=== PATIENT | female | born 1980 | race Caucasian/White ===

== ENCOUNTER 2017-05-30 09:09 | Emergency (ER) | payer BC ==
[~2017-05-30] VITALS: Ht 188 cm; Wt 131.5 kg
[~2017-05-30 09:09] MED LIST: HYDR1TAB26 PO; LEXAPRO10 MG PO; METF500T4 PO; METO-269 PO; NORG1TAB41 PO; PROP60CA PO; TOPI100T8 PO; TOPI50TA8 PO
[2017-05-30] MEDS ORDERED: MORPHINE SULFATE 10 MG/ML VIAL. IV ONE (09:45)
--- NOTE | 2017-05-30 10:02 | RAD ---
Indication left-sided chest pain. A single view of the chest was obtained and is compared to an examination 13 months earlier the heart and pulmonary vessels appear normal. The lungs are clear. There is no pleural fluid or pneumothorax. Bony structures appear grossly intact. A significant change compared to the previous exam is not seen. Bipolar cardiac pacing device is noted. IMPRESSION: No acute or focal process. No significant change
[2017-05-30 10:05] LABS: BASO % 1 % (0-3); EOS % 2 % (0-3); LYMPH # 2.4 x10^3/uL (1.0-4.8); LYMPH % 38 % (24-48); MEAN CORPUSCULAR HEMOGLOBIN 29 pg (25-35); MEAN CORPUSCULAR HGB CONC 33 g/dL (31-37); MEAN CORPUSCULAR VOLUME 88 fL (79-100); MONO % 8 % (0-9); NEUT % 52 % (31-73); PLATELET COUNT 251 x10^3/uL (140-400); RED BLOOD COUNT 4.43 x10^6/uL (3.50-5.40); RED CELL DISTRIBUTION WIDTH 13.5 % (11.5-14.5); WHITE BLOOD COUNT 6.4 x10^3/uL (4.0-11.0)
[2017-05-30 10:17] LABS: CALCIUM 8.5 mg/dL (8.5-10.1); GFR 63.1
[2017-05-30 10:23] LABS: ALBUMIN 3.3 g/dL (3.4-5.0); ALBUMIN/GLOBULIN RATIO 0.9 (1.0-1.7); TOTAL BILIRUBIN 0.4 mg/dL (0.2-1.0); TOTAL PROTEIN 6.9 g/dL (6.4-8.2)
--- NOTE | 2017-05-30 10:27 | PHYS DOC ---
Past Medical History Past Medical History: CAD, Diabetes-Type II, Other Additional Past Medical Histor: bradycardia Past Surgical History: Pacemaker, Other Additional Past Surgical Histo: L ankle, plastic surgery to lip Alcohol Use: None Drug Use: None Adult General Chief Complaint Chief Complaint: CHEST PAIN HPI HPI Patient is a 37 year old female presenting to the emergency department for evaluation of chest pain around her pacemaker site happened yesterday around noon for which she called the ambulance and was seen at [facility] for approximately 4-5 hours. She said that they tried getting a pacemaker interrogation but they could not find it. She cannot elaborate any further. She has a [employer] pacemaker and follows with Dr. Mary. Patient says it is achy and sharp-type pain in that occurred again 2 hours prior to arrival. She denies any shortness of breath diaphoresis nausea vomiting. She had the pacemaker placed for bradycardic episodes and had a cardiac arrest event while having her tilt table test. Review of Systems Review of Systems Constitutional: Denies fever or chills [] Eyes: Denies change in visual acuity, redness, or eye pain [] HENT: Denies nasal congestion or sore throat [] Respiratory: Denies cough or shortness of breath [] Cardiovascular: + CP GI: Denies abdominal pain, nausea, vomiting, bloody stools or diarrhea [] : Denies dysuria or hematuria [] Musculoskeletal: Denies back pain or joint pain [] Integument: Denies rash or skin lesions [] Neurologic: Denies headache, focal weakness or sensory changes [] Current Medications Current Medications Current Medications Medications (Trade) Dose Ordered Sig/Cary Start Time Stop Time Status Last Admin Dose Admin Fentanyl Citrate (Fentanyl 2ml Vial) 75 mcg 1X ONCE 05/30/17 10:45 05/30/17 10:46 DC 05/30/17 11:10 75 MCG Ketorolac Tromethamine (Toradol) 30 mg 1X ONCE 05/30/17 10:45 05/30/17 10:46 DC 05/30/17 11:15 30 MG Morphine Sulfate 5 mg 1X ONCE 05/30/17 09:45 05/30/17 09:46 DC 05/30/17 09:57 5 MG Allergies Allergies Allergies Coded Allergies Type Severity Reaction Last Updated Verified cinnamon Allergy Severe throat closes 02/02/16 Yes Sulfa (Sulfonamide Antibiotics) Allergy Intermediate rash 02/02/16 Yes Physical Exam Physical Exam Constitutional: Well developed, well nourished, no acute distress, non-toxic appearance. [] HENT: Normocephalic, atraumatic, bilateral external ears normal, oropharynx moist, no oral exudates, nose normal. [] Eyes: PERRLA, EOMI, conjunctiva normal, no discharge. [] Neck: Normal range of motion, no tenderness, supple, no stridor. [] Cardiovascular:Heart rate regular rhythm, no murmur [] Lungs & Thorax: Bilateral breath sounds clear to auscultation. + chest wall ttp around pacemaker. No redness, swelling, inflammation. Abdomen: Bowel sounds normal, soft, no tenderness, no masses, no pulsatile masses. [] Skin: Warm, dry, no erythema, no rash. [] Back: No tenderness, no CVA tenderness. [] Extremities: No tenderness, no cyanosis, no clubbing, ROM intact, no edema. [] Neurologic: Alert and oriented X 3, normal motor function, normal sensory function, no focal deficits noted. [] Current Patient Data Vital Signs Vital Signs Date Time Temp Pulse Resp B/P (MAP) Pulse Ox O2 Delivery O2 Flow Rate FiO2 05/30/17 11:19 60 18 148/80 (102) 99 Room Air 05/30/17 09:20 97.9 97.9 Lab Values Laboratory Tests Test 05/30/17 09:30 White Blood Count 6.4 x10^3/uL (4.0-11.0) Red Blood Count 4.43 x10^6/uL (3.50-5.40) Hemoglobin 13.0 g/dL (12.0-15.5) Hematocrit 39.0 % (36.0-47.0) Mean Corpuscular Volume 88 fL (79-100) Mean Corpuscular Hemoglobin 29 pg (25-35) Mean Corpuscular Hemoglobin Concent 33 g/dL (31-37) Red Cell Distribution Width 13.5 % (11.5-14.5) Platelet Count 251 x10^3/uL (140-400) Neutrophils (%) (Auto) 52 % (31-73) Lymphocytes (%) (Auto) 38 % (24-48) Monocytes (%) (Auto) 8 % (0-9) Eosinophils (%) (Auto) 2 % (0-3) Basophils (%) (Auto) 1 % (0-3) Neutrophils # (Auto) 3.4 x10^3uL (1.8-7.7) Lymphocytes # (Auto) 2.4 x10^3/uL (1.0-4.8) Monocytes # (Auto) 0.5 x10^3/uL (0.0-1.1) Eosinophils # (Auto) 0.1 x10^3/uL (0.0-0.7) Basophils # (Auto) 0.0 x10^3/uL (0.0-0.2) Sodium Level 143 mmol/L (136-145) Potassium Level 4.0 mmol/L (3.5-5.1) Chloride Level 106 mmol/L (98-107) Carbon Dioxide Level 29 mmol/L (21-32) Anion Gap 8 (6-14) Blood Urea Nitrogen 11 mg/dL (7-20) Creatinine 1.0 mg/dL (0.6-1.0) Estimated GFR (Cockcroft-Gault) 63.1 BUN/Creatinine Ratio 11 (6-20) Glucose Level 104 mg/dL (70-99) H Calcium Level 8.5 mg/dL (8.5-10.1) Total Bilirubin 0.4 mg/dL (0.2-1.0) Aspartate Amino Transferase (AST) 13 U/L (15-37) L Alanine Aminotransferase (ALT) 19 U/L (14-59) Alkaline Phosphatase 43 U/L (46-116) L Troponin I Quantitative < 0.017 ng/mL (0.000-0.055) KF-Fys-H-Type Natriuretic Peptide 81 pg/mL (0-124) Total Protein 6.9 g/dL (6.4-8.2) Albumin 3.3 g/dL (3.4-5.0) L Albumin/Globulin Ratio 0.9 (1.0-1.7) L Laboratory Tests 05/30/17 09:30 Laboratory Tests 05/30/17 09:30 EKG EKG Normal sinus rhythm at 71 beats per minutes with leftward axis no obvious ST elevation or depression and normal T waves. Radiology/Procedures Radiology/Procedures Indication left-sided chest pain. A single view of the chest was obtained and is compared to an examination 13 months earlier the heart and pulmonary vessels appear normal. The lungs are clear. There is no pleural fluid or pneumothorax. Bony structures appear grossly intact. A significant change compared to the previous exam is not seen. Bipolar cardiac pacing device is noted. IMPRESSION: No acute or focal process. No significant change DICTATED and SIGNED BY: MILLY CORONADO MD DATE: 05/30/17 0958 Course & Med Decision Making Course & Med Decision Making Will get labs, CXR, EKG, pacemaker interrogation, and reasess. Pacemaker interrogation showed that she has a very functional pacemaker with no episodes. Labs are completely normal. Pain is more around the site of her pacemaker to palpation but there is no signs of infection or other concerns. I spoke to Dr. Mary and he is agreeable to outpatient care so I will tell her to take NSAIDs in addition to [place] for breakthrough pain and to follow with Dr. Mary within the next 2-3 days not to exert herself and come back to the ER sooner with any worsening pain fevers vomiting or other general concerns. Patient and family aware and agreeable with plan and verbalized understanding of the below instructions. Dragon Disclaimer Dragon Disclaimer This electronic medical record was generated, in whole or in part, using a voice recognition dictation system. Departure Departure Impression: Primary Impression: Anterior chest wall pain Disposition: 01 HOME, SELF-CARE Condition: GOOD Referrals: ANGELITA CHERRY (PCP) ALANNA NUNEZ MD Patient Instructions: Chest Wall Pain Scripts Hydrocodone/Apap 5-325 (NORCO 5-325 TABLET) 1 Each Tablet 1 TAB PO PRN Q6HRS Y for PAIN, #14 TAB 0 Refills Prov: LYDIA NESBITT DO 05/30/17 LYDIA NESBITT DO May 30, 2017 10:27
[2017-05-30] MEDS ORDERED: KETOROLAC TROMETHAMINE 30 MG/ML INJ. IV ONE (10:45)
[2017-05-30] MEDS ORDERED: fentaNYL PF VIAL 100 MCG/2 ML VIAL IV ONE (10:45)
[2017-05-30 11:01] LABS: PROTHROMBIN TIME PATIENT 12.7 SEC (11.7-14.0)
[2017-05-30] MEDS ORDERED: HYDR-971 PO (11:27)
[2017-05-30 11:46] VITALS: BP 135/78
--- NOTE | 2017-05-30 12:12 | EKG ---
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
== END 2017-05-30 11:52 | disposition home or self-care (01) ==
LOC: ER 09:09
DX: R07.89 Other chest pain (principal); I25.10 Atherosclerotic heart disease of native coronary artery without angina pectoris; E11.9 Type 2 diabetes mellitus without complications; Z95.0 Presence of cardiac pacemaker; Z88.2 Allergy status to sulfonamides; Z88.8 Allergy status to other drugs, medicaments and biological substances
CPT/HCPCS: 36415; 71010; 80053; 83880; 84484; 85027; 85610; 85730; 93005; 96374; 96375; 99285; J1885; J2270; J3010

== ENCOUNTER 2017-06-01 12:21 | Observation (INO) | payer SELFPAY ==
[~2017-06-01] VITALS: Ht 188 cm; Wt 141.5 kg
[~2017-06-01 12:21] MED LIST changes: +HYDR-971 PO
--- NOTE | 2017-06-01 13:20 | RAD ---
Examination: Single frontal view the chest History: History of chest pain, left arm numbness, left leg swelling Comparison: None available Findings: Left-sided cardiac pacer is unchanged. The cardiomediastinal silhouette grossly appears unremarkable. There is no acute infiltrate or visualize pneumothorax. Impression: No acute cardiopulmonary findings.
[2017-06-01 13:27] LABS: BASO % 1 % (0-3); EOS % 2 % (0-3); HEMATOCRIT 37.4 % (36.0-47.0); HEMOGLOBIN 12.7 g/dL (12.0-15.5); LYMPH # 2.7 x10^3/uL (1.0-4.8); LYMPH % 45 % (24-48); MEAN CORPUSCULAR HEMOGLOBIN 30 pg (25-35); MEAN CORPUSCULAR HGB CONC 34 g/dL (31-37); MEAN CORPUSCULAR VOLUME 87 fL (79-100); MONO % 8 % (0-9); NEUT % 44 % (31-73); PLATELET COUNT 238 x10^3/uL (140-400); RED CELL DISTRIBUTION WIDTH 13.6 % (11.5-14.5)
[2017-06-01 13:42] LABS: INR 0.9 (0.8-1.1); PROTHROMBIN TIME PATIENT 11.9 SEC (11.7-14.0)
[2017-06-01 13:43] LABS: CALCIUM 8.4 mg/dL (8.5-10.1); GFR 63.1; POTASSIUM 4.1 mmol/L (3.5-5.1)
--- NOTE | 2017-06-01 13:45 | PHYS DOC ---
Past Medical History Past Medical History: CAD, Diabetes-Type II, Other Additional Past Medical Histor: bradycardia Past Surgical History: Pacemaker, Other Additional Past Surgical Histo: L ankle, plastic surgery to lip Alcohol Use: None Drug Use: None Adult General Chief Complaint Chief Complaint: CHEST PAIN HPI HPI Patient is a 37 year old patient presenting to the emergency department for evaluation of several complaints including persistent left-sided chest pain left arm and leg numbness and tingling. This is her fourth emergency department visit in 7 days as she went to [employer] last Friday in addition to [place] and then I saw her here Friday and I'm seeing her 2 days later. Chest pain is still sharp worse with palpation of her chest wall around her pacemaker site. While she was in [place] today she started having circumferential left arm numbness and numbness down the front of her left leg. The numbness in her arm and leg is improving and now she just feels tingling on the bottom of her left foot. She denies any vision changes confusion unilateral weakness headache. She is in no obvious distress with normal vital signs. Review of Systems Review of Systems Constitutional: Denies fever or chills [] Eyes: Denies change in visual acuity, redness, or eye pain [] HENT: Denies nasal congestion or sore throat [] Respiratory: Denies cough or shortness of breath [] Cardiovascular: + CP GI: Denies abdominal pain, nausea, vomiting, bloody stools or diarrhea [] : Denies dysuria or hematuria [] Musculoskeletal: Denies back pain or joint pain [] Integument: Denies rash or skin lesions [] Neurologic: Denies headache, focal weakness. + sensory changes [] Allergies Allergies Allergies Coded Allergies Type Severity Reaction Last Updated Verified cinnamon Allergy Severe throat closes 02/02/16 Yes Sulfa (Sulfonamide Antibiotics) Allergy Intermediate rash 02/02/16 Yes Physical Exam Physical Exam Constitutional: Well developed, well nourished, no acute distress, non-toxic appearance. [] HENT: Normocephalic, atraumatic, bilateral external ears normal, oropharynx moist, no oral exudates, nose normal. [] Eyes: PERRLA, EOMI, conjunctiva normal, no discharge. [] Neck: Normal range of motion, no tenderness, supple, no stridor. [] Cardiovascular:Heart rate regular rhythm, no murmur [] Lungs & Thorax: Bilateral breath sounds clear to auscultation. + chest wall ttp around pacemaker site. Abdomen: Bowel sounds normal, soft, no tenderness, no masses, no pulsatile masses. [] Skin: Warm, dry, no erythema, no rash. [] Back: No tenderness, no CVA tenderness. [] Extremities: No tenderness, no cyanosis, no clubbing, ROM intact, no edema. [] Neurologic: Alert and oriented X 3, normal motor function, normal sensory function, no focal deficits noted. [] Current Patient Data Vital Signs Vital Signs Date Time Temp Pulse Resp B/P (MAP) Pulse Ox O2 Delivery O2 Flow Rate FiO2 06/01/17 13:18 97.5 70 16 142/84 (103) 97 Room Air 97.5 Lab Values Laboratory Tests Test 06/01/17 13:18 White Blood Count 6.0 x10^3/uL (4.0-11.0) Red Blood Count 4.30 x10^6/uL (3.50-5.40) Hemoglobin 12.7 g/dL (12.0-15.5) Hematocrit 37.4 % (36.0-47.0) Mean Corpuscular Volume 87 fL (79-100) Mean Corpuscular Hemoglobin 30 pg (25-35) Mean Corpuscular Hemoglobin Concent 34 g/dL (31-37) Red Cell Distribution Width 13.6 % (11.5-14.5) Platelet Count 238 x10^3/uL (140-400) Neutrophils (%) (Auto) 44 % (31-73) Lymphocytes (%) (Auto) 45 % (24-48) Monocytes (%) (Auto) 8 % (0-9) Eosinophils (%) (Auto) 2 % (0-3) Basophils (%) (Auto) 1 % (0-3) Neutrophils # (Auto) 2.6 x10^3uL (1.8-7.7) Lymphocytes # (Auto) 2.7 x10^3/uL (1.0-4.8) Monocytes # (Auto) 0.5 x10^3/uL (0.0-1.1) Eosinophils # (Auto) 0.1 x10^3/uL (0.0-0.7) Basophils # (Auto) 0.0 x10^3/uL (0.0-0.2) Laboratory Tests 06/01/17 13:18 EKG EKG Sinus rhythm at 71 bpm with normal axis no obvious ST elevation or depression and normal T waves. Radiology/Procedures Radiology/Procedures Chest x-ray normal Course & Med Decision Making Course & Med Decision Making Patient is in TPA time window however her NIH is 0 and her symptoms are resolving which is a contraindication for TPA. Given her frequent emergency department visits I spoke to Dr. Mcpherson who is on-call for Dr. Mary and she recommended admitting patient for neurologic and cardiac evaluation. Patient admitted to the hospitalist in stable condition. Dragon Disclaimer Dragon Disclaimer This electronic medical record was generated, in whole or in part, using a voice recognition dictation system. Departure Departure Impression: Primary Impression: Anterior chest wall pain Additional Impressions: Left upper extremity numbness Numbness of left lower extremity Disposition: ADMITTED INPATIENT Admitting Physician: Wilbur Epstein Condition: STABLE Referrals: ANGELITA CHERRY (PCP) Problem Qualifiers LYDIA NESBITT DO Jun 01, 2017 13:45
[2017-06-01 13:49] LABS: ALBUMIN 3.2 g/dL (3.4-5.0); ALBUMIN/GLOBULIN RATIO 0.9 (1.0-1.7); TOTAL BILIRUBIN 0.2 mg/dL (0.2-1.0); TOTAL PROTEIN 6.9 g/dL (6.4-8.2)
--- NOTE | 2017-06-01 14:11 | RAD ---
Examination: CT head and cervical spine without contrast PQRS Compliance Statement: One or more of the following individualized dose reduction techniques were utilized for this examination: 1. Automated exposure control 2. Adjustment of the mA and/or kV according to patient size 3. Use of iterative reconstruction technique CT head without contrast History: Left arm and leg numbness. Comparison: CT head from 10/27/2013. Procedure: Axial images are obtained of the head from the skull base through the vertex without IV contrast. Findings: The ventricles and sulci are normal for the patient's age. No mass-effect, intracranial mass, midline shift, hemorrhage or obvious acute infarction is identified. Basilar cisterns are patent. Bone windows demonstrate no significant calvarial abnormality. The visualized paranasal sinuses appear clear. Impression: 1. No acute intracranial process. CT cervical spine without contrast History: Left arm numbness Comparison: 06/17/2015 Technique: Noncontrast helical CT of the cervical spine was performed. Sagittal, and coronal reconstructions were obtained. Findings: Alignment of the cervical spine appears anatomic. There is no evidence of acute fracture or acute malalignment. No prevertebral soft tissue swelling is identified. Minimal disc bulges identified in the cervical spine without significant anterior thecal sac impression. Visualized soft tissues of the neck demonstrate no significant abnormalities. Few prominent bilateral cervical lymph nodes identified with the largest measuring 1.9 cm and the left, nonspecific. Impression: 1. No acute fracture of the cervical spine. Correlate clinically. 2. Mild degenerative changes cervical spine.
[2017-06-01] MEDS ORDERED: fentaNYL PF VIAL 100 MCG/2 ML VIAL IV PRN (14:15)
[2017-06-01] MEDS ORDERED: ONDANSETRON PF 4 MG/2 ML VIAL. IV PRN ×2 (14:15→16:45)
[2017-06-01] MEDS ORDERED: HYDROcodone/APAP 5/325MG 1 TAB TABLET PO ONE (14:30)
[2017-06-01] MEDS ORDERED: IOHEXOL 300 MG/ML 75 ML VIAL IV ONE (14:30)
[2017-06-01] MEDS ORDERED: KETOROLAC TROMETHAMINE 30 MG/ML INJ. IV ONE (14:30)
[2017-06-01] MEDS ORDERED: CONTRAST GIVEN MC PRN (14:45)
--- NOTE | 2017-06-01 15:16 | RAD ---
Examination: CT angiogram of the chest History: History of chest pain, elevated d-dimer, left arm, leg numbness Comparison: 06/17/2015 Technique: Axial CT and static images of the chest were performed with IV contrast. Coronal and sagittal 3-D MIP reformats are performed. PQRS Compliance Statement: One or more of the following individualized dose reduction techniques were utilized for this examination: 1. Automated exposure control 2. Adjustment of the mA and/or kV according to patient size 3. Use of iterative reconstruction technique Findings: The visualized thyroid gland grossly appears unremarkable The heart size grossly appears unremarkable. Left-sided cardiac pacer is identified. The caliber of the aorta grossly appears unremarkable. There is no evidence of filling defect identified in the main pulmonary arterial trunk and right and left main pulmonary arteries. There is no evidence of filling defect identified in the visualized lobar, segmental branches of the pulmonary arteries. Minimal right lung base pleural-based atelectasis or scarring. No evidence of pleural effusion or pneumothorax. The visualized liver, spleen, adrenals grossly appears unremarkable. Mild degenerative changes thoracic spine. Impression: 1. No evidence of pulmonary embolism. 2. Minimal right lung base pleural-based atelectasis or scarring.
[2017-06-01 15:39] VITALS: BP 144/86
[2017-06-01] MEDS ORDERED: ESCITALOPRAM OX20 MG PO (16:37)
--- NOTE | 2017-06-01 16:43 | PDOC1 ---
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 While patient was sitting in congregation her symptoms came suddenly and lasted for a few minutes. At the time of my examination this evening her symptoms resolved however patient says she is very weak and feels like no energy. She denies any palpitations however she had a significant heart rate 2 days ago. Patient says she was admitted she was in [facility] ER and [place] emergency medicine Department for several reasons such as facial rash, and palpitations. She denies any substance abuse or noncompliance with medications or anxiety episodes. She denies any relieving factors or aggravating factors. Past Medical History Cardiovascular: HTN, Syncope, Other CENTRAL NERVOUS SYSTEM: Other Psych: Anxiety Past Surgical History Past Surgical History: Hysterectomy Family History Family History: Other (heart failure grandparents) Social History Smoke: No ALCOHOL: rare Drugs: None Current Problem List Problem List Problems Medical Problems: (1) Anterior chest wall pain Status: Acute (2) Left upper extremity numbness Status: Acute (3) Numbness of left lower extremity Status: Acute Current Medications Current Medications Current Medications Medications (Trade) Dose Ordered Sig/Cary Start Time Stop Time Status Last Admin Dose Admin Acetaminophen/ Hydrocodone Bitart (Lortab 5/325) 2 tab 1X ONCE 06/01/17 14:30 06/01/17 14:31 DC 06/01/17 15:21 2 TAB Fentanyl Citrate (Fentanyl 2ml Vial) 50 mcg PRN Q2HR PRN 06/01/17 14:15 06/02/17 14:14 Info (Do NOT chart on this entry -- for MONITORING) 1 each PRN DAILY PRN 06/01/17 14:45 06/03/17 14:44 Iohexol (Omnipaque 300 Mg/ml) 75 ml 1X ONCE 06/01/17 14:30 06/01/17 14:35 DC 06/01/17 14:47 75 ML Ketorolac Tromethamine (Toradol) 30 mg 1X ONCE 06/01/17 14:30 06/01/17 14:31 DC 06/01/17 15:21 30 MG Ondansetron HCl (Zofran) 4 mg PRN Q8HRS PRN 06/01/17 14:15 06/02/17 14:14 Allergies Allergies Allergies Coded Allergies Type Severity Reaction Last Updated Verified cinnamon Allergy Severe throat closes 02/02/16 Yes Sulfa (Sulfonamide Antibiotics) Allergy Intermediate rash 02/02/16 Yes mushroom Allergy Intermediate 06/01/17 Yes ROS Review of System CONSTITUTIONAL: No fever or chills ,generalized weakness EYES: No recent changes SKIN: No rash or itching CARDIOVASCULAR: No chest pain, syncope, palpitations, or edema RESPIRATORY: No SOB or cough GASTROINTESTINAL: No nausea, vomiting or abdominal pain NEUROLOGICAL: No headaches or weakness ENDOCRINE: No cold or heat intolerance GENITOURINARY: No urgency or frequency of urination MUSCULOSKELETAL: No back pain or joint pain LYMPHATICS: No enlarged lymph nodes PSYCHIATRIC: No anxiety or depression Physical Exam Physical Exam GEN.: No apparent distress. Alert and oriented 3, morbidly obese. HEENT: Head is normocephalic, atraumatic NECK: Supple. No JVD LUNGS: Clear to auscultation. Chest clear, no erythema or redness seen around the pacemaker site. HEART: RRR, S1, S2 present. Peripheral pulses intact ABDOMEN: Soft, nontender. Positive bowel sounds. EXTREMITIES: Without any cyanosis. NEUROLOGIC: Normal speech, normal tone and strength in all extremities equally and intact. PSYCHIATRIC: Normal affect, normal mood. SKIN: No visible ulcerations Vitals Vitals Vital Signs Date Time Temp Pulse Resp B/P (MAP) Pulse Ox O2 Delivery O2 Flow Rate FiO2 06/01/17 16:25 16 Room Air 06/01/17 15:39 97.5 81 144/86 (105) 98 97.5 Labs Labs Laboratory Tests Test 06/01/17 13:18 06/01/17 16:35 White Blood Count 6.0 x10^3/uL (4.0-11.0) Red Blood Count 4.30 x10^6/uL (3.50-5.40) Hemoglobin 12.7 g/dL (12.0-15.5) Hematocrit 37.4 % (36.0-47.0) Mean Corpuscular Volume 87 fL (79-100) Mean Corpuscular Hemoglobin 30 pg (25-35) Mean Corpuscular Hemoglobin Concent 34 g/dL (31-37) Red Cell Distribution Width 13.6 % (11.5-14.5) Platelet Count 238 x10^3/uL (140-400) Neutrophils (%) (Auto) 44 % (31-73) Lymphocytes (%) (Auto) 45 % (24-48) Monocytes (%) (Auto) 8 % (0-9) Eosinophils (%) (Auto) 2 % (0-3) Basophils (%) (Auto) 1 % (0-3) Neutrophils # (Auto) 2.6 x10^3uL (1.8-7.7) Lymphocytes # (Auto) 2.7 x10^3/uL (1.0-4.8) Monocytes # (Auto) 0.5 x10^3/uL (0.0-1.1) Eosinophils # (Auto) 0.1 x10^3/uL (0.0-0.7) Basophils # (Auto) 0.0 x10^3/uL (0.0-0.2) Prothrombin Time 11.9 SEC (11.7-14.0) Prothromb Time International Ratio 0.9 (0.8-1.1) Activated Partial Thromboplast Time 26 SEC (24-38) D-Dimer (Erika) 0.52 ug/mlFEU (0.00-0.50) Sodium Level 142 mmol/L (136-145) Potassium Level 4.1 mmol/L (3.5-5.1) Chloride Level 107 mmol/L (98-107) Carbon Dioxide Level 29 mmol/L (21-32) Anion Gap 6 (6-14) Blood Urea Nitrogen 11 mg/dL (7-20) Creatinine 1.0 mg/dL (0.6-1.0) Estimated GFR (Cockcroft-Gault) 63.1 BUN/Creatinine Ratio 11 (6-20) Glucose Level 106 mg/dL (70-99) Calcium Level 8.4 mg/dL (8.5-10.1) Total Bilirubin 0.2 mg/dL (0.2-1.0) Aspartate Amino Transf (AST/SGOT) 18 U/L (15-37) Alanine Aminotransferase (ALT/SGPT) 23 U/L (14-59) Alkaline Phosphatase 44 U/L (46-116) Troponin I Quantitative < 0.017 ng/mL (0.000-0.055) BB-Yqh-J-Type Natriuretic Peptide 156 pg/mL (0-124) Total Protein 6.9 g/dL (6.4-8.2) Albumin 3.2 g/dL (3.4-5.0) Albumin/Globulin Ratio 0.9 (1.0-1.7) Glucose (Fingerstick) 92 mg/dL (70-99) Laboratory Tests Test 06/01/17 13:18 06/01/17 16:35 White Blood Count 6.0 x10^3/uL (4.0-11.0) Red Blood Count 4.30 x10^6/uL (3.50-5.40) Hemoglobin 12.7 g/dL (12.0-15.5) Hematocrit 37.4 % (36.0-47.0) Mean Corpuscular Volume 87 fL (79-100) Mean Corpuscular Hemoglobin 30 pg (25-35) Mean Corpuscular Hemoglobin Concent 34 g/dL (31-37) Red Cell Distribution Width 13.6 % (11.5-14.5) Platelet Count 238 x10^3/uL (140-400) Neutrophils (%) (Auto) 44 % (31-73) Lymphocytes (%) (Auto) 45 % (24-48) Monocytes (%) (Auto) 8 % (0-9) Eosinophils (%) (Auto) 2 % (0-3) Basophils (%) (Auto) 1 % (0-3) Neutrophils # (Auto) 2.6 x10^3uL (1.8-7.7) Lymphocytes # (Auto) 2.7 x10^3/uL (1.0-4.8) Monocytes # (Auto) 0.5 x10^3/uL (0.0-1.1) Eosinophils # (Auto) 0.1 x10^3/uL (0.0-0.7) Basophils # (Auto) 0.0 x10^3/uL (0.0-0.2) Prothrombin Time 11.9 SEC (11.7-14.0) Prothromb Time International Ratio 0.9 (0.8-1.1) Activated Partial Thromboplast Time 26 SEC (24-38) D-Dimer (Erika) 0.52 ug/mlFEU (0.00-0.50) Sodium Level 142 mmol/L (136-145) Potassium Level 4.1 mmol/L (3.5-5.1) Chloride Level 107 mmol/L (98-107) Carbon Dioxide Level 29 mmol/L (21-32) Anion Gap 6 (6-14) Blood Urea Nitrogen 11 mg/dL (7-20) Creatinine 1.0 mg/dL (0.6-1.0) Estimated GFR (Cockcroft-Gault) 63.1 BUN/Creatinine Ratio 11 (6-20) Glucose Level 106 mg/dL (70-99) Calcium Level 8.4 mg/dL (8.5-10.1) Total Bilirubin 0.2 mg/dL (0.2-1.0) Aspartate Amino Transf (AST/SGOT) 18 U/L (15-37) Alanine Aminotransferase (ALT/SGPT) 23 U/L (14-59) Alkaline Phosphatase 44 U/L (46-116) Troponin I Quantitative < 0.017 ng/mL (0.000-0.055) UM-Btx-L-Type Natriuretic Peptide 156 pg/mL (0-124) Total Protein 6.9 g/dL (6.4-8.2) Albumin 3.2 g/dL (3.4-5.0) Albumin/Globulin Ratio 0.9 (1.0-1.7) Glucose (Fingerstick) 92 mg/dL (70-99) VTE Prophylaxis Ordered VTE Prophylaxis Devices: Yes VTE Pharmacological Prophylaxi: Contraindicated Assessment/Plan Assessment/Plan Left upper extremity numbness/chest pain: Possible musculoskeletal in nature versus severe anxiety, needs to rule out seizure-like activity, consult cardiology, will get 2 more sets of troponins, EKG personally reviewed no acute ST-T wave changes noted. Cardiology might change probably at her pacemaker. Neurology consultation placed. Current plan and management discussed with the patient and her mother at bedside agreeable with the current management. Current labs and images reviewed CT of chest ruled out PE. First set of troponins within normal range. Old records reviewed. Patient had a coronary artery angiogram in 2014 at the time she was also evaluated by cardiology. Obesity, BMI 40.1 Prediabetes Anxiety and depression. VAL MANUEL MD Jun 01, 2017 16:43
[2017-06-01] MEDS ORDERED: ACETAMINOPHEN 325 MG TABLET. PO PRN (16:45)
[2017-06-01] MEDS ORDERED: ALBUTEROL SULFATE 2.5 MG/3 ML NEBU. NEB PRN (16:45)
[2017-06-01] MEDS ORDERED: hydrALAZINE 20 MG/ML VIAL. IVP PRN (16:45)
[2017-06-01] MEDS ORDERED: HYDROcodone/APAP 5/325MG 1 TAB TABLET PO PRN ×3 (16:45→23:00)
--- NOTE | 2017-06-01 18:50 | EKG ---
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
[2017-06-01 19:10] VITALS: BP 138/85
[2017-06-01 23:21] VITALS: BP 142/88
--- NOTE | 2017-06-01 23:42 | PDOC2 ---
NEUROLOGY CONSULT Date of Admission Date of Admission DATE: 06/01/17 TIME: 23:33 Reason for consultation: Left arm and leg numbness History of present illness: Shayy Orellana is a pleasant 37-year-old woman who presented to the emergency room at [facility] because of left- sided chest pain, left arm numbness and tingling and left leg tingling. 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 After the tingling began in the left arm and leg her left foot felt swollen. Both feet are normally a little swollen with the left worsen the right. The symptoms lasted about an hour and then fully resolved. She did not have a headache at the time but currently has a headache. The symptoms of left arm numbness have occurred on several occasions previously. They have not always been associated with a headache following. She is also had spells of syncope. She was found to have bradycardia and had a pacemaker placed about 5 years ago. She reports this to be an MRI compatible pacemaker. She reports that her most recent MRI of her head was approximately one year ago and was negative. She continues to have occasional spells of syncope about once per month which is less than prior to the placement of the pacemaker. She will feel very dizzy, lightheaded and become pale. She will get diaphoretic and nauseated. If her witnesses the spell he will get her to the ground without her harming herself. Past medical history: 1. Type 2 diabetes for which she does not monitor her sugars or follow a diabetic diet 2. Coronary artery disease 3. Pacemaker 4. Left ankle surgery 5. Plastic surgery to the lip 6. Chest pain Family history: Her mother has lupus. Her maternal grandmother has lupus. Her father has type 2 diabetes Her paternal grandfather had prostate cancer. Her maternal grandmother had seizures. Social history she is . She does not have children. She does not smoke tobacco, drink alcohol except rarely and does not use recreational drugs. 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 Current Medications Current Medications Current Medications Ketorolac Tromethamine (Toradol) 30 mg 1X ONCE IV Last administered on t 15:21; Start 06/01/17 at 14:30; Stop 06/01/17 at 14:31; Status DC Acetaminophen/ Hydrocodone Bitart (Lortab 5/325) 2 tab 1X ONCE PO Last administered on 06/01/17t 15:21; Start 06/01/17 at 14:30; Stop 06/01/17 at 14:31; Status DC Ondansetron HCl (Zofran) 4 mg PRN Q8HRS PRN IV NAUSEA/VOMITING; Start 06/01/17 at 14:15; Stop 06/01/17 at 16:47; Status DC Fentanyl Citrate (Fentanyl 2ml Vial) 50 mcg PRN Q2HR PRN IV PAIN; Start at 14:15; Stop 06/02/17 at 14:14 Iohexol (Omnipaque 300 Mg/ml) 75 ml 1X ONCE IV Last administered on 06/01/17t 14:47; Start 06/01/17 at 14:30; Stop 06/01/17 at 14:35; Status DC Info (Do NOT chart on this entry -- for MONITORING) 1 each PRN DAILY PRN MC SEE COMMENTS; Start 06/01/17 at 14:45; Stop 06/03/17 at 14:44 Acetaminophen/ Hydrocodone Bitart (Lortab 5/325) 1 tab PRN Q6HRS PRN PO PAIN; Start 06/01/17 at 16:45; Status Cancel Metformin HCl (Glucophage) 500 mg BIDWMEALS PO ; Start 06/03/17 at 17:00 Propranolol HCl (Inderal La) 60 mg DAILY PO ; Start 06/02/17 at 09:00 Escitalopram Oxalate (Lexapro) 20 mg DAILY PO ; Start 06/02/17 at 09:00 Non-Formulary Medication 1 each DAILY PO ; Start 06/02/17 at 09:00; Status UNV Topiramate (Topamax) 50 mg DAILY07 PO ; Start 06/02/17 at 07:00 Acetaminophen (Tylenol) 325 mg PRN Q6HRS PRN PO MILD PAIN / TEMP; Start at 16:45 Acetaminophen/ Hydrocodone Bitart (Lortab 5/325) 1 tab PRN Q6HRS PRN PO MODERATE TO SEVERE PAIN; Start 06/01/17 at 16:45; Stop 06/01/17 at 22:46; Status DC Hydralazine HCl (Apresoline) 10 mg PRN Q4HRS PRN IVP ELEVATED BP, SEE COMMENTS ; Start 06/01/17 at 16:45 Ondansetron HCl (Zofran) 4 mg PRN Q8HRS PRN IV NAUSEA/VOMITING; Start 06/01/17 at 16:45 Albuterol Sulfate (Ventolin Neb Soln) 2.5 mg PRN Q4HRS PRN NEB SHORTNESS OF BREATH; Start 06/01/17 at 16:45 Acetaminophen/ Hydrocodone Bitart (Lortab 5/325) 2 tab PRN Q6HRS PRN PO MODERATE TO SEVERE PAIN Last administered on 06/01/17t 23:27; Start 06/01/17 at 23 :00 Active Scripts Active [place] 5-325 Tablet (Acetaminophen/Hydrocodone Bitart) 1 Each Tablet 1 Tab PO PRN Q6HRS PRN Reported Escitalopram Oxalate 20 Mg Tablet 1 Tab PO DAILY Metformin Hcl 500 Mg Tablet 1 Tab PO BID Propranolol Hcl 60 Mg Cap.sa.24h 60 Mg PO DAILY Topiramate 50 Mg Tablet 1 Tab PO DAILY07 Ogestrel (Norgestrel-Ethinyl Estradiol) 1 Each Tablet 1 Each PO DAILY Allergies Allergies: Coded Allergies: cinnamon (Verified Allergy, Severe, throat closes, 02/02/16) Sulfa (Sulfonamide Antibiotics) (Verified Allergy, Intermediate, rash, 10/09) mushroom (Verified Allergy, Intermediate, 06/01/17) ROS Review of System Constitutional: Negative Eyes: Negative HENT: Negative Respiratory: Negative Cardiovascular: She has chest pain. She has episodes of syncope. GI: Negative : Negative Musculoskeletal: Negative Neurologic: She is had episodes of left arm and leg numbness. Hematologic: Negative Lymphatic: Negative Psychiatric: She has anxiety which is not well controlled with Lexapro. Physical Exam Physical Examination She was alert, awake and cooperative. The speech was fluent and clear. She had a good fund of recent and remote knowledge. Attention and concentration was intact. She was well-groomed and well-nourished. She was fully oriented. Examination of the cranial nerves revealed visual huffman were full to confrontation. Extraocular movements were intact. The eyes were conjugate. Pursuit movements were smooth and saccadic movements were without dysmetria. The pupils were [default value] millimeters and reacted to light. There was no afferent pupillary defect. Funduscopic examination did not reveal papilledema, exudate or hemorrhage. Facial sensation was intact. The muscles of mastication and facial expression were powerful symmetrically. Hearing was intact to finger rub. The palate arch symmetrically and the tongue was midline with full range of motion. Sternocleidomastoid and trapezius were powerful bilaterally. Muscle bulk and tone was normal. She had difficulty allowing her muscles to relax for tone testing. There was no arm drift or abnormal movement. The power was full and symmetric in the upper and lower extremities. Reflexes were diminished throughout. The toes were downgoing bilaterally. Coordination testing with finger to nose, heel to subramanian, fine motor and rapid alternating movements was well performed. The sensory examination was intact to pain, light touch, proprioception, graphesthesia, cold thermal and vibration. There was no extinction to double simultaneous stimulation. The gait was of a normal base and steady walk. She was able to heel, toe, and tandem walk. The Romberg stance was negative. Auscultation of the carotid arteries did not reveal a bruit. Heart rhythm was regular without a murmur. Peripheral pulses are 2/4 at the wrists and feet. There was no cyanosis of the extremities. She had edema of the calves and feet. Vitals VITALS Vital Signs Date Time Temp Pulse Resp B/P (MAP) Pulse Ox O2 Delivery O2 Flow Rate FiO2 06/01/17 23:21 98.1 73 18 142/88 (106) 93 Room Air 98.1 Labs Labs Laboratory Tests Test 06/01/17 13:18 06/01/17 16:35 06/01/17 19:55 06/01/17 21:13 White Blood Count 6.0 x10^3/uL (4.0-11.0) Red Blood Count 4.30 x10^6/uL (3.50-5.40) Hemoglobin 12.7 g/dL (12.0-15.5) Hematocrit 37.4 % (36.0-47.0) Mean Corpuscular Volume 87 fL (79-100) Mean Corpuscular Hemoglobin 30 pg (25-35) Mean Corpuscular Hemoglobin Concent 34 g/dL (31-37) Red Cell Distribution Width 13.6 % (11.5-14.5) Platelet Count 238 x10^3/uL (140-400) Neutrophils (%) (Auto) 44 % (31-73) Lymphocytes (%) (Auto) 45 % (24-48) Monocytes (%) (Auto) 8 % (0-9) Eosinophils (%) (Auto) 2 % (0-3) Basophils (%) (Auto) 1 % (0-3) Neutrophils # (Auto) 2.6 x10^3uL (1.8-7.7) Lymphocytes # (Auto) 2.7 x10^3/uL (1.0-4.8) Monocytes # (Auto) 0.5 x10^3/uL (0.0-1.1) Eosinophils # (Auto) 0.1 x10^3/uL (0.0-0.7) Basophils # (Auto) 0.0 x10^3/uL (0.0-0.2) Prothrombin Time 11.9 SEC (11.7-14.0) Prothromb Time International Ratio 0.9 (0.8-1.1) Activated Partial Thromboplast Time 26 SEC (24-38) D-Dimer (Erika) 0.52 ug/mlFEU (0.00-0.50) Sodium Level 142 mmol/L (136-145) Potassium Level 4.1 mmol/L (3.5-5.1) Chloride Level 107 mmol/L (98-107) Carbon Dioxide Level 29 mmol/L (21-32) Anion Gap 6 (6-14) Blood Urea Nitrogen 11 mg/dL (7-20) Creatinine 1.0 mg/dL (0.6-1.0) Estimated GFR (Cockcroft-Gault) 63.1 BUN/Creatinine Ratio 11 (6-20) Glucose Level 106 mg/dL (70-99) Calcium Level 8.4 mg/dL (8.5-10.1) Total Bilirubin 0.2 mg/dL (0.2-1.0) Aspartate Amino Transf (AST/SGOT) 18 U/L (15-37) Alanine Aminotransferase (ALT/SGPT) 23 U/L (14-59) Alkaline Phosphatase 44 U/L (46-116) Troponin I Quantitative < 0.017 ng/mL (0.000-0.055) < 0.017 ng/mL (0.000-0.055) DU-Zrd-Y-Type Natriuretic Peptide 156 pg/mL (0-124) Total Protein 6.9 g/dL (6.4-8.2) Albumin 3.2 g/dL (3.4-5.0) Albumin/Globulin Ratio 0.9 (1.0-1.7) Glucose (Fingerstick) 92 mg/dL (70-99) 100 mg/dL (70-99) Laboratory Tests Test 06/01/17 13:18 06/01/17 16:35 06/01/17 19:55 06/01/17 21:13 White Blood Count 6.0 x10^3/uL (4.0-11.0) Red Blood Count 4.30 x10^6/uL (3.50-5.40) Hemoglobin 12.7 g/dL (12.0-15.5) Hematocrit 37.4 % (36.0-47.0) Mean Corpuscular Volume 87 fL (79-100) Mean Corpuscular Hemoglobin 30 pg (25-35) Mean Corpuscular Hemoglobin Concent 34 g/dL (31-37) Red Cell Distribution Width 13.6 % (11.5-14.5) Platelet Count 238 x10^3/uL (140-400) Neutrophils (%) (Auto) 44 % (31-73) Lymphocytes (%) (Auto) 45 % (24-48) Monocytes (%) (Auto) 8 % (0-9) Eosinophils (%) (Auto) 2 % (0-3) Basophils (%) (Auto) 1 % (0-3) Neutrophils # (Auto) 2.6 x10^3uL (1.8-7.7) Lymphocytes # (Auto) 2.7 x10^3/uL (1.0-4.8) Monocytes # (Auto) 0.5 x10^3/uL (0.0-1.1) Eosinophils # (Auto) 0.1 x10^3/uL (0.0-0.7) Basophils # (Auto) 0.0 x10^3/uL (0.0-0.2) Prothrombin Time 11.9 SEC (11.7-14.0) Prothromb Time International Ratio 0.9 (0.8-1.1) Activated Partial Thromboplast Time 26 SEC (24-38) D-Dimer (Erika) 0.52 ug/mlFEU (0.00-0.50) Sodium Level 142 mmol/L (136-145) Potassium Level 4.1 mmol/L (3.5-5.1) Chloride Level 107 mmol/L (98-107) Carbon Dioxide Level 29 mmol/L (21-32) Anion Gap 6 (6-14) Blood Urea Nitrogen 11 mg/dL (7-20) Creatinine 1.0 mg/dL (0.6-1.0) Estimated GFR (Cockcroft-Gault) 63.1 BUN/Creatinine Ratio 11 (6-20) Glucose Level 106 mg/dL (70-99) Calcium Level 8.4 mg/dL (8.5-10.1) Total Bilirubin 0.2 mg/dL (0.2-1.0) Aspartate Amino Transf (AST/SGOT) 18 U/L (15-37) Alanine Aminotransferase (ALT/SGPT) 23 U/L (14-59) Alkaline Phosphatase 44 U/L (46-116) Troponin I Quantitative < 0.017 ng/mL (0.000-0.055) < 0.017 ng/mL (0.000-0.055) LN-Gua-I-Type Natriuretic Peptide 156 pg/mL (0-124) Total Protein 6.9 g/dL (6.4-8.2) Albumin 3.2 g/dL (3.4-5.0) Albumin/Globulin Ratio 0.9 (1.0-1.7) Glucose (Fingerstick) 92 mg/dL (70-99) 100 mg/dL (70-99) Images Images CTA of the chest did not reveal evidence of pulmonary embolus. CT scan of the head and cervical spine did not reveal an acute lesion. Chest x-ray did not reveal any acute cardiopulmonary process. Assessment/Plan Assessment/Plan 1. Shayy Orellana is a pleasant 37-year-old woman who had an hour episode of left arm and leg numbness and tingling. She has very tight muscles but I could not reproduce the tingling my finding a trigger point. I'm suspicious this is myofascial in etiology. Another possibility is migraine with aura. She is previously had this left-sided numbness but not always associated with headache. The headache occurred after the numbness resolved. It's possible she is having chest pain which is causing the sense of numbness. I don't feel this represents a transient ischemic attack. She is previously undergone MRI of the head to determine if she's had strokes and she has not. 2. Recurrent syncope is likely vasovagal. She gets lightheaded, dizzy, diaphoretic and nauseated. Her has witnessed the spell. She becomes extremely pale during the spell. It's possible the pacemaker is not capturing and she is becoming bradycardic and hypotensive. They have never measured the blood pressure during a spell or the pulse. The pacemaker can be interrogated to determine if there is malfunctioning. 3. Anxiety disorder is not adequately treated with her current regimen. She might be well served by working with a psychiatrist to modify her regimen to be more effective. She may also need to work with a counselor at medications alone are not helpful. ROSALINDA IQBAL MD Jun 01, 2017 23:42
[2017-06-02 01:53] LABS: BASO % 1 % (0-3); EOS % 2 % (0-3); HEMATOCRIT 35.9 % (36.0-47.0); HEMOGLOBIN 12.3 g/dL (12.0-15.5); LYMPH % 48 % (24-48); MEAN CORPUSCULAR HEMOGLOBIN 30 pg (25-35); MEAN CORPUSCULAR HGB CONC 34 g/dL (31-37); MEAN CORPUSCULAR VOLUME 86 fL (79-100); MONO % 8 % (0-9); NEUT % 41 % (31-73); PLATELET COUNT 201 x10^3/uL (140-400); RED BLOOD COUNT 4.15 x10^6/uL (3.50-5.40); RED CELL DISTRIBUTION WIDTH 13.7 % (11.5-14.5); WHITE BLOOD COUNT 6.1 x10^3/uL (4.0-11.0)
[2017-06-02 02:26] LABS: CALCIUM 8.7 mg/dL (8.5-10.1); GFR 63.1; POTASSIUM 3.8 mmol/L (3.5-5.1)
[2017-06-02 03:11] VITALS: BP 128/84
--- NOTE | 2017-06-02 05:50 | ACF ---
Admission Forms Criteria CARDIOLOGY GRG Clinical Indications for Admission to Inpatient Care ( Place 'X' for any and all applicable criteria): Hospital admission is needed for appropriate care of the patient because of ANY ONE of the following (1): [ ] I. Hemodynamic instability as indicated by ALL of the following (1)(2)(3) (4)(5) [ ]a) Vital signs or other findings not as expected for chronic patient condition or baseline [ ]b) Instability indicated by ANY ONE of the following: [ ]i) Hypotension [ ]ii) Symptomatic Tachycardia unresponsive to treatment ( e.g., analgesia, fluids, sedation as indicated) [ ]iii) Inadequate perfusion indicated by ANY ONE of the following: [ ] 1) Lactic acidosis (> 2 mmol/L) [ ] 2) New abnormal capillary refill (> 3 seconds) [ ] 3) Reduced urine output [ ] 4) New altered mental status [ ]iv) Orthostatic vital sign changes unresponsive to treatment (e.g., fluids) [ ]v) IV inotropic or vasopressor medication required to maintain adequate blood pressure or perfusion [ ] II. Severe heart failure as indicated by ANY ONE of the following(17)(18) [ ]a) Respiratory distress [ ]b) Hypotension [ ]c) Anasarca (refractory to outpatient therapy) [ ]d) Cardiac arrhythmias of immediate concern [ ]e) Myocardial ischemia [ ] III. Cardiac arrhythmias or findings of immediate concern indicated by ANY ONE of the following (19)(20): [ ] a) Heart rhythms that are inherently dangerous or unstable indicated by ANY ONE of the following (21)(22)(23): [ ] i) Resuscitated ventricular fibrillation or cardiac arrest [ ] ii) Ventricular escape rhythm [ ] iii) Sustained ventricular tachycardia (30 seconds or more of ventricular rhythm at greater than 100 beats per minute) [ ] iv) Nonsustained ventricular tachycardia and ANY ONE of the following: [ ] 1) Suspected cardiac ischemia as cause or consequence of ventricular tachycardia [ ] 2) In setting of acute myocarditis [ ] b) Unstable cardiac conduction defects indicated by ANY ONE of the following(23)(24)(25) [ ] i) Type II second-degree atrioventricular block [ ]ii) Third-degree atrioventricular block [ ]iii) New-onset left bundle branch block with suspected myocardial ischemia [ ]c) Any heart rhythm and ANY ONE of the following (21)(22)(26)(27) (28) [ ] i) Continuous long-term ECG monitoring needed (e.g., initiation of drug requiring monitoring for more than 24 hours) [ ] ii) Patient has automatic implanted cardioverter defibrillator that is repeatedly firing, malfunctioning, or in need of immediate adjustment of settings beyond the scope of ambulatory or observation care [ ]d) Heart rhythms of concern due to ANY ONE of the following: [ ] i) Hypotension [ ] ii) Respiratory distress [ ] iii) Association with other significant symptoms (e.g., bradycardia with syncope or ongoing dizziness, supraventricular tachycardia with chest pain (14)(15)(17) [ ] IV. Monitoring for cardiac contusion beyond the scope of observation care needed [A](30)(31)(32) [ ] V. Surgical or device complication (e.g., valve replacement complication , pacemaker dysfunction) (35)(41)(44)(45)(46) [ ] . Inpatient palliative care needed. [B](49) Also use Inpatient Palliative Care Criteria [ ] VII. Nonbacterial thrombotic (marantic) endocarditis (36)(43)(47)(48) [X] VIII. Cardiology condition, symptom, or finding for which emergency and observation care has failed or are not considered appropriate. [ ] IX. Acute valvular disease requiring inpatient as indicated by ANY ONE of the following (41) [ ]a) Acute valvular regurgitation (42) [ ]b) Noninfectious valvulitis (43) [ ]c) Obstructive valve thrombosis [ ]d) Paravalvular leak [ ]e) Other significant valvular disorder remaining after emergency or observation level of care (as appropriate) [ ]X. Pericardial disease requiring inpatient treatment as indicated by ANY ONE of the following (33)(34)(35)(36)(37) [ ]a) Suspected tamponade (38)(39)(40) [ ]b) Hemopericardium [ ]c) Other significant pericardial disorder remaining after emergency or observation level of care (as appropriate) [ ] XI. Cardiac ischemia beyond scope of emergency and observation care. [ ] XII. Hypertension requiring inpatient treatment as indicated by ANY ONE of the following (6)(7)(8) [ ]a) SBP greater than 220 mm Hg or DBP greater than 120 mmHg despite treatment [ ]b) SBP greater than 140 mm Hg or DBP greater than 100 mm Hg with evidence of acute end organ damage as indicated by ANY ONE of the following [ ] i) Encephalopathy [ ] ii) Acute renal failure as indicated by new onset of ANY ONE of the following (9)(10)(11)(12)(13) [ ]1) 3-fold rise in serum creatinine from baseline [ ]2) Serum creatinine greater than 4 mg/dL ( 354 micromoles/L) with acute rise greater than 0.5 mg/dL (44.2 micromoles/L) [ ]3) Reduction of more than 75% in estimated glomerular filtration rate from baseline [ ]4) Estimated glomerular filtration rate less than 35 mL/min/1.73m2 (0.59 mL/sec/1.73m2) in child up to 18 years of age [ ]5) Cessation of urine output indicated by ALL of the following [ ]A. Adequate volume status [ ]B. Inadequate urine output as indicated by ANY ONE of the following [ ]a. Urine output less than 0.3 mL/kg/hr for 24 hours [ ]b. Anuria (urine output less than 0.1 mL/kg/hr) for 12 hours [ ] iii) Aortic dissection [ ] iv) Myocardial Ischemia [ ] v) Left ventricular heart failure [ ]vi) Retinal Hemorrhage [ ]vii) Other significant finding [ ]c) Hypertension in child requiring inpatient treatment as indicated by ALL of the following(14)(15)(16) [ ] i) Outpatient treatment not effective, not available, or not appropriate [ ]ii) SBP or DBP greater than 95th percentile for age [ ]iii) Evidence of acute end organ damage as indicated by ANY ONE of the following [ ]1) Altered mental status [ ]2) Acute renal failure as indicated by new onset of ANY ONE of the following(9)(10)(11)(12)(13) [ ]A. 3-fold rise in serum creatinine from baseline [ ]B. Serum creatinine greater than 4 mg/dL (354 micromoles/L) with acute rise greater than 0.5 mg/dL (44.2 micromoles/L) [ ]C. Reduction of more than 75% in estimated glomerular filtration rate from baseline [ ]D. Estimated glomerular filtration rate less than 35 mL/min/1.73m2 (0.59 mL/sec/1.73m2) in child up to 18 years of age [ ]E. Cessation of urine output indicated by ALL of the following [ ]a. Adequate volume status [ ]b. Inadequate urine output as indicated by ANY ONE of the following [ ]i) Urine output less than 0.3 mL/kg/hr for 24 hours [ ]ii) Anuria ( urine output less than 0.1 mL/kg/hr) for 12 hours [ ]3) Severe headache [ ]4) Visual disturbance [ ]5) Retinal hemorrhage [ ]6) Other significant finding [ ]XIII. Complications of transplanted heart indicated by ANY ONE of the following(61): [ ]a) Acute graft rejection requiring inpatient management (eg, intravenous immunosuppression)(62)(63) [ ]b) Acute graft heart failure indicated by ANY ONE of the following(64): [ ]i) Hemodynamic instability [ ]ii) Cardiac arrhythmias of immediate concern [ ]iii) Pulmonary edema that is very severe (eg, mechanical ventilation needed, imminent or likely, need for 100% oxygen to keep oxygen saturation above 90%) [ ]iv) Pulmonary edema that is persistent as indicated by ALL of the following: [ ]1) New need for oxygen therapy to keep oxygen saturation above 90% (or increased FiO2 need from baseline) [ ]2) Has not improved sufficiently with emergency department or observation care IV diuretics or other heart failure treatments[E] [ ]v) Altered mental status that is severe or persistent [ ]vi) Increased creatinine (new on laboratory test) with reduction of more than 50% in estimated glomerular filtration rate from baseline [ ]vii) Progressively (ongoing) rising creatinine (known from past laboratory test) with reduction of more than 25% in estimated glomerular filtration rate from baseline [ ]viii) Acute renal failure [ ]ix) Acute peripheral ischemia (eg, examination shows pulseless, cool, mottled, or cyanotic extremity) [ ]x) Pulmonary artery catheter monitoring needed [ ]xi) Other sign or symptom of heart failure requiring inpatient treatment (ie, too severe or not responsive to outpatient and observation care treatment) [ ]c) Infection requiring inpatient management (eg, Hemodynamic instability, need for intravenous antimicrobial treatment)(66)(67)(68)(69)(70) [ ]d) Cardiac allograft vasculopathy requiring inpatient management ( eg evidence of cardiac ischemia)(71) [ ]e) Other complication of transplanted heart (eg, stroke, severe pulmonary hypertension, severe valvular dysfunction) requiring inpatient management(72) The original [facility] content created by [facility] has been revised. The portions of the content which have been revised are identified through the use of italic text or in bold, and [facility] has neither reviewed nor approved the modified material. All other unmodified content is copyright [facility]. Please see references footnoted in the original [facility] edition 2016 Admission Criteria Met?: Yes VIOLETTE US Jun 02, 2017 05:49
[2017-06-02] MEDS ORDERED: TOPIRAMATE 25 MG TABLET. PO SCH (07:00)
[2017-06-02 07:04] VITALS: BP 127/86
[2017-06-02] MEDS ORDERED: AMIT10TA PO (08:50)
[2017-06-02] MEDS ORDERED: PROPRANOLOL ER 60 MG CAP.SA.24H. PO SCH (09:00)
[2017-06-02] MEDS ORDERED: ESCITALOPRAM 10 MG TABLET. PO SCH (09:00)
[2017-06-02] MEDS ORDERED: NORGESTREL ETHINYL ESTRADIOL PO SCH (09:00)
--- NOTE | 2017-06-02 10:01 | PDOC ---
PROGRESS NOTES Assessment Problems Medical Problems: (1) Anterior chest wall pain Status: Acute (2) Left upper extremity numbness Status: Acute (3) Numbness of left lower extremity Status: Acute Left arm numbness, may be migraine in origin Recurrent syncope, likely vasovagal. Anxiety disorder Plan No need to repeat brain MRI Okay for discharge later today She follows with Dr. Gilliland as her neurologist. Consider outpatient psychiatry referral regarding anxiety disorder Subjective Feels better Objective Vital Signs Date Time Temp Pulse Resp B/P (MAP) Pulse Ox O2 Delivery O2 Flow Rate FiO2 06/02/17 08:52 74 127/86 06/02/17 07:04 97.7 26 98 Room Air 97.7 Intake and Output 06/02/17 07:00 Intake Total 380 ml Balance 380 ml Intake Oral 380 ml # Voids 1 Review of Relevant I have reviewed the following items aramis (where applicable) has been applied. Labs Laboratory Tests Test 06/01/17 13:18 06/01/17 16:35 06/01/17 19:55 06/01/17 21:13 White Blood Count 6.0 x10^3/uL (4.0-11.0) Red Blood Count 4.30 x10^6/uL (3.50-5.40) Hemoglobin 12.7 g/dL (12.0-15.5) Hematocrit 37.4 % (36.0-47.0) Mean Corpuscular Volume 87 fL (79-100) Mean Corpuscular Hemoglobin 30 pg (25-35) Mean Corpuscular Hemoglobin Concent 34 g/dL (31-37) Red Cell Distribution Width 13.6 % (11.5-14.5) Platelet Count 238 x10^3/uL (140-400) Neutrophils (%) (Auto) 44 % (31-73) Lymphocytes (%) (Auto) 45 % (24-48) Monocytes (%) (Auto) 8 % (0-9) Eosinophils (%) (Auto) 2 % (0-3) Basophils (%) (Auto) 1 % (0-3) Neutrophils # (Auto) 2.6 x10^3uL (1.8-7.7) Lymphocytes # (Auto) 2.7 x10^3/uL (1.0-4.8) Monocytes # (Auto) 0.5 x10^3/uL (0.0-1.1) Eosinophils # (Auto) 0.1 x10^3/uL (0.0-0.7) Basophils # (Auto) 0.0 x10^3/uL (0.0-0.2) Prothrombin Time 11.9 SEC (11.7-14.0) Prothromb Time International Ratio 0.9 (0.8-1.1) Activated Partial Thromboplast Time 26 SEC (24-38) D-Dimer (Erika) 0.52 ug/mlFEU (0.00-0.50) Sodium Level 142 mmol/L (136-145) Potassium Level 4.1 mmol/L (3.5-5.1) Chloride Level 107 mmol/L (98-107) Carbon Dioxide Level 29 mmol/L (21-32) Anion Gap 6 (6-14) Blood Urea Nitrogen 11 mg/dL (7-20) Creatinine 1.0 mg/dL (0.6-1.0) Estimated GFR (Cockcroft-Gault) 63.1 BUN/Creatinine Ratio 11 (6-20) Glucose Level 106 mg/dL (70-99) Calcium Level 8.4 mg/dL (8.5-10.1) Total Bilirubin 0.2 mg/dL (0.2-1.0) Aspartate Amino Transf (AST/SGOT) 18 U/L (15-37) Alanine Aminotransferase (ALT/SGPT) 23 U/L (14-59) Alkaline Phosphatase 44 U/L (46-116) Troponin I Quantitative < 0.017 ng/mL (0.000-0.055) < 0.017 ng/mL (0.000-0.055) HW-Mfh-Z-Type Natriuretic Peptide 156 pg/mL (0-124) Total Protein 6.9 g/dL (6.4-8.2) Albumin 3.2 g/dL (3.4-5.0) Albumin/Globulin Ratio 0.9 (1.0-1.7) Glucose (Fingerstick) 92 mg/dL (70-99) 100 mg/dL (70-99) Test 06/02/17 02:00 06/02/17 07:09 White Blood Count 6.1 x10^3/uL (4.0-11.0) Red Blood Count 4.15 x10^6/uL (3.50-5.40) Hemoglobin 12.3 g/dL (12.0-15.5) Hematocrit 35.9 % (36.0-47.0) Mean Corpuscular Volume 86 fL (79-100) Mean Corpuscular Hemoglobin 30 pg (25-35) Mean Corpuscular Hemoglobin Concent 34 g/dL (31-37) Red Cell Distribution Width 13.7 % (11.5-14.5) Platelet Count 201 x10^3/uL (140-400) Neutrophils (%) (Auto) 41 % (31-73) Lymphocytes (%) (Auto) 48 % (24-48) Monocytes (%) (Auto) 8 % (0-9) Eosinophils (%) (Auto) 2 % (0-3) Basophils (%) (Auto) 1 % (0-3) Neutrophils # (Auto) 2.5 x10^3uL (1.8-7.7) Lymphocytes # (Auto) 3.0 x10^3/uL (1.0-4.8) Monocytes # (Auto) 0.5 x10^3/uL (0.0-1.1) Eosinophils # (Auto) 0.1 x10^3/uL (0.0-0.7) Basophils # (Auto) 0.0 x10^3/uL (0.0-0.2) Sodium Level 138 mmol/L (136-145) Potassium Level 3.8 mmol/L (3.5-5.1) Chloride Level 104 mmol/L (98-107) Carbon Dioxide Level 29 mmol/L (21-32) Anion Gap 5 (6-14) Blood Urea Nitrogen 10 mg/dL (7-20) Creatinine 1.0 mg/dL (0.6-1.0) Estimated GFR (Cockcroft-Gault) 63.1 Glucose Level 100 mg/dL (70-99) Calcium Level 8.7 mg/dL (8.5-10.1) Troponin I Quantitative < 0.017 ng/mL (0.000-0.055) Glucose (Fingerstick) 104 mg/dL (70-99) Laboratory Tests Test 06/01/17 13:18 06/01/17 16:35 06/01/17 19:55 06/01/17 21:13 White Blood Count 6.0 x10^3/uL (4.0-11.0) Red Blood Count 4.30 x10^6/uL (3.50-5.40) Hemoglobin 12.7 g/dL (12.0-15.5) Hematocrit 37.4 % (36.0-47.0) Mean Corpuscular Volume 87 fL (79-100) Mean Corpuscular Hemoglobin 30 pg (25-35) Mean Corpuscular Hemoglobin Concent 34 g/dL (31-37) Red Cell Distribution Width 13.6 % (11.5-14.5) Platelet Count 238 x10^3/uL (140-400) Neutrophils (%) (Auto) 44 % (31-73) Lymphocytes (%) (Auto) 45 % (24-48) Monocytes (%) (Auto) 8 % (0-9) Eosinophils (%) (Auto) 2 % (0-3) Basophils (%) (Auto) 1 % (0-3) Neutrophils # (Auto) 2.6 x10^3uL (1.8-7.7) Lymphocytes # (Auto) 2.7 x10^3/uL (1.0-4.8) Monocytes # (Auto) 0.5 x10^3/uL (0.0-1.1) Eosinophils # (Auto) 0.1 x10^3/uL (0.0-0.7) Basophils # (Auto) 0.0 x10^3/uL (0.0-0.2) Prothrombin Time 11.9 SEC (11.7-14.0) Prothromb Time International Ratio 0.9 (0.8-1.1) Activated Partial Thromboplast Time 26 SEC (24-38) D-Dimer (Erika) 0.52 ug/mlFEU (0.00-0.50) Sodium Level 142 mmol/L (136-145) Potassium Level 4.1 mmol/L (3.5-5.1) Chloride Level 107 mmol/L (98-107) Carbon Dioxide Level 29 mmol/L (21-32) Anion Gap 6 (6-14) Blood Urea Nitrogen 11 mg/dL (7-20) Creatinine 1.0 mg/dL (0.6-1.0) Estimated GFR (Cockcroft-Gault) 63.1 BUN/Creatinine Ratio 11 (6-20) Glucose Level 106 mg/dL (70-99) Calcium Level 8.4 mg/dL (8.5-10.1) Total Bilirubin 0.2 mg/dL (0.2-1.0) Aspartate Amino Transf (AST/SGOT) 18 U/L (15-37) Alanine Aminotransferase (ALT/SGPT) 23 U/L (14-59) Alkaline Phosphatase 44 U/L (46-116) Troponin I Quantitative < 0.017 ng/mL (0.000-0.055) < 0.017 ng/mL (0.000-0.055) KE-Ivo-I-Type Natriuretic Peptide 156 pg/mL (0-124) Total Protein 6.9 g/dL (6.4-8.2) Albumin 3.2 g/dL (3.4-5.0) Albumin/Globulin Ratio 0.9 (1.0-1.7) Glucose (Fingerstick) 92 mg/dL (70-99) 100 mg/dL (70-99) Test 06/02/17 02:00 06/02/17 07:09 White Blood Count 6.1 x10^3/uL (4.0-11.0) Red Blood Count 4.15 x10^6/uL (3.50-5.40) Hemoglobin 12.3 g/dL (12.0-15.5) Hematocrit 35.9 % (36.0-47.0) Mean Corpuscular Volume 86 fL (79-100) Mean Corpuscular Hemoglobin 30 pg (25-35) Mean Corpuscular Hemoglobin Concent 34 g/dL (31-37) Red Cell Distribution Width 13.7 % (11.5-14.5) Platelet Count 201 x10^3/uL (140-400) Neutrophils (%) (Auto) 41 % (31-73) Lymphocytes (%) (Auto) 48 % (24-48) Monocytes (%) (Auto) 8 % (0-9) Eosinophils (%) (Auto) 2 % (0-3) Basophils (%) (Auto) 1 % (0-3) Neutrophils # (Auto) 2.5 x10^3uL (1.8-7.7) Lymphocytes # (Auto) 3.0 x10^3/uL (1.0-4.8) Monocytes # (Auto) 0.5 x10^3/uL (0.0-1.1) Eosinophils # (Auto) 0.1 x10^3/uL (0.0-0.7) Basophils # (Auto) 0.0 x10^3/uL (0.0-0.2) Sodium Level 138 mmol/L (136-145) Potassium Level 3.8 mmol/L (3.5-5.1) Chloride Level 104 mmol/L (98-107) Carbon Dioxide Level 29 mmol/L (21-32) Anion Gap 5 (6-14) Blood Urea Nitrogen 10 mg/dL (7-20) Creatinine 1.0 mg/dL (0.6-1.0) Estimated GFR (Cockcroft-Gault) 63.1 Glucose Level 100 mg/dL (70-99) Calcium Level 8.7 mg/dL (8.5-10.1) Troponin I Quantitative < 0.017 ng/mL (0.000-0.055) Glucose (Fingerstick) 104 mg/dL (70-99) Medications Current Medications Ketorolac Tromethamine (Toradol) 30 mg 1X ONCE IV Last administered on 15:21; Start 06/01/17 at 14:30; Stop 06/01/17 at 14:31; Status DC Acetaminophen/ Hydrocodone Bitart (Lortab 5/325) 2 tab 1X ONCE PO Last administered on 06/01/17 15:21; Start 06/01/17 at 14:30; Stop 06/01/17 at 14:31; Status DC Ondansetron HCl (Zofran) 4 mg PRN Q8HRS PRN IV NAUSEA/VOMITING; Start 06/01/17 at 14:15; Stop 06/01/17 at 16:47; Status DC Fentanyl Citrate (Fentanyl 2ml Vial) 50 mcg PRN Q2HR PRN IV PAIN Last administered on 06/02/17 02:58; Start 06/01/17 at 14:15; Stop 06/02/17 at 14:14 Iohexol (Omnipaque 300 Mg/ml) 75 ml 1X ONCE IV Last administered on 06/01/17 14:47; Start 06/01/17 at 14:30; Stop 06/01/17 at 14:35; Status DC Info (Do NOT chart on this entry -- for MONITORING) 1 each PRN DAILY PRN MC SEE COMMENTS; Start 06/01/17 at 14:45; Stop 06/03/17 at 14:44 Acetaminophen/ Hydrocodone Bitart (Lortab 5/325) 1 tab PRN Q6HRS PRN PO PAIN; Start 06/01/17 at 16:45; Status Cancel Metformin HCl (Glucophage) 500 mg BIDWMEALS PO ; Start 06/03/17 at 17:00 Propranolol HCl (Inderal La) 60 mg DAILY PO Last administered on 06/02/17 08: 52; Start 06/02/17 at 09:00 Escitalopram Oxalate (Lexapro) 20 mg DAILY PO Last administered on 06/02/17 08 :52; Start 06/02/17 at 09:00 Non-Formulary Medication 1 each DAILY PO ; Start 06/02/17 at 09:00; Stop at 09:00; Status DC Topiramate (Topamax) 50 mg DAILY07 PO Last administered on 06/02/17 08:52; Start 06/02/17 at 07:00 Acetaminophen (Tylenol) 325 mg PRN Q6HRS PRN PO MILD PAIN / TEMP; Start at 16:45 Acetaminophen/ Hydrocodone Bitart (Lortab 5/325) 1 tab PRN Q6HRS PRN PO MODERATE TO SEVERE PAIN; Start 06/01/17 at 16:45; Stop 06/01/17 at 22:46; Status DC Hydralazine HCl (Apresoline) 10 mg PRN Q4HRS PRN IVP ELEVATED BP, SEE COMMENTS ; Start 06/01/17 at 16:45 Ondansetron HCl (Zofran) 4 mg PRN Q8HRS PRN IV NAUSEA/VOMITING; Start 06/01/17 at 16:45 Albuterol Sulfate (Ventolin Neb Soln) 2.5 mg PRN Q4HRS PRN NEB SHORTNESS OF BREATH; Start 06/01/17 at 16:45 Acetaminophen/ Hydrocodone Bitart (Lortab 5/325) 2 tab PRN Q6HRS PRN PO MODERATE TO SEVERE PAIN Last administered on 06/01/17 23:27; Start 06/01/17 at 23 :00 Amitriptyline HCl (Elavil) 10 mg QHS PO ; Start 06/02/17 at 21:00 Active Scripts Active [place] 5-325 Tablet (Acetaminophen/Hydrocodone Bitart) 1 Each Tablet 1 Tab PO PRN Q6HRS PRN Reported Amitriptyline Hcl 10 Mg Tablet 1 Tab PO QHS Escitalopram Oxalate 20 Mg Tablet 1 Tab PO DAILY Metformin Hcl 500 Mg Tablet 1 Tab PO BID Propranolol Hcl 60 Mg Cap.sa.24h 60 Mg PO DAILY Topiramate 50 Mg Tablet 1 Tab PO DAILY07 Vitals/I & O Vital Sign - Last 24 Hours 06/01/17 06/01/17 06/01/17 06/01/17 13:18 13:25 13:55 14:25 Temp 97.5 97.5 Pulse 70 74 70 70 Resp 16 22 20 20 B/P (MAP) 142/84 (103) 138/81 (100) 143/79 (100) 150/76 (100) Pulse Ox 97 96 97 96 O2 Delivery Room Air Room Air 06/01/17 06/01/17 06/01/17 06/01/17 15:21 15:39 16:25 19:10 Temp 97.5 97.9 97.5 97.9 Pulse 81 74 Resp 18 16 20 B/P (MAP) 144/86 (105) 138/85 (102) Pulse Ox 98 97 O2 Delivery Room Air Room Air Room Air Room Air 06/01/17 06/01/17 06/01/17 06/02/17 19:49 20:00 23:21 00:27 Temp 98.1 98.1 Pulse 73 Resp 18 20 B/P (MAP) 142/88 (106) Pulse Ox 93 93 O2 Delivery Room Air Room Air Room Air Room Air 06/02/17 06/02/17 06/02/17 06/02/17 02:58 03:11 03:28 07:04 Temp 98.5 97.7 98.5 97.7 Pulse 90 79 Resp 20 20 20 26 B/P (MAP) 128/84 (99) 127/86 (100) Pulse Ox 95 98 O2 Delivery Room Air Room Air Room Air Room Air 06/02/17 08:52 Pulse 74 B/P (MAP) 127/86 Intake and Output 06/01/17 06/01/17 06/02/17 15:00 23:00 07:00 Intake Total 180 ml 200 ml Balance 180 ml 200 ml AMADA LIM MD Jun 02, 2017 10:01
[2017-06-02 10:30] VITALS: BP 124/95
[2017-06-02] MEDS ORDERED: PNEUMOCOCCAL VAX SCREEN BY RX. MC PRN (10:30)
[2017-06-02] MEDS ORDERED: AMIT25TA PO (11:19)
[2017-06-02] MEDS ORDERED: PNEUMOC CONJ VACC 23-VALENT 0.5 ML VIAL. VAX IM ONE (12:00)
--- NOTE | 2017-06-02 13:59 | PDOC2 ---
CONSULT Date of Consult Date of Consult DATE: 06/02/17 TIME: 13:48 Reason for Consult Reason for Consult: chest pain Referring Physician Referring Physician: Wilbur Epstein MD Identification/Chief Complaint Chief Complaint Chest pain Problems: Source Source: Patient History of Present Illness Reason for Visit: Ms Orellana is a 37 yr old female with a previous history of symptomatic bradycardia with pacemaker, who presents with symptoms of chest pain and arm/ leg numbness. Per patient, while at [employer] yesterday, her left arm and left foot became numb. She felt light-headed and started having pain around the site of her pacemaker. She currently only has pain around her pacemaker. Laying on her left side or touching the area makes the pain worse. Her leg/foot are no longer numb. Past Medical History Cardiovascular: HTN, Syncope, Other CENTRAL NERVOUS SYSTEM: Other Psych: Anxiety Past Surgical History Past Surgical History: Hysterectomy Family History Family History: Other (heart failure grandparents) Social History No ALCOHOL: rare Drugs: None Lives: with Family Current Problem List Problem List Problems Medical Problems: (1) Anterior chest wall pain Status: Acute (2) Left upper extremity numbness Status: Acute (3) Numbness of left lower extremity Status: Acute Current Medications Current Medications Current Medications Ketorolac Tromethamine (Toradol) 30 mg 1X ONCE IV Last administered on 15:21; Start 06/01/17 at 14:30; Stop 06/01/17 at 14:31; Status DC Acetaminophen/ Hydrocodone Bitart (Lortab 5/325) 2 tab 1X ONCE PO Last administered on 06/01/17 15:21; Start 06/01/17 at 14:30; Stop 06/01/17 at 14:31; Status DC Ondansetron HCl (Zofran) 4 mg PRN Q8HRS PRN IV NAUSEA/VOMITING; Start 06/01/17 at 14:15; Stop 06/01/17 at 16:47; Status DC Fentanyl Citrate (Fentanyl 2ml Vial) 50 mcg PRN Q2HR PRN IV PAIN Last administered on 06/02/17 02:58; Start 06/01/17 at 14:15; Stop 06/02/17 at 14:14 Iohexol (Omnipaque 300 Mg/ml) 75 ml 1X ONCE IV Last administered on 06/01/17 14:47; Start 06/01/17 at 14:30; Stop 06/01/17 at 14:35; Status DC Info (Do NOT chart on this entry -- for MONITORING) 1 each PRN DAILY PRN MC SEE COMMENTS; Start 06/01/17 at 14:45; Stop 06/03/17 at 14:44 Acetaminophen/ Hydrocodone Bitart (Lortab 5/325) 1 tab PRN Q6HRS PRN PO PAIN; Start 06/01/17 at 16:45; Status Cancel Metformin HCl (Glucophage) 500 mg BIDWMEALS PO ; Start 06/03/17 at 17:00 Propranolol HCl (Inderal La) 60 mg DAILY PO Last administered on 06/02/17 08: 52; Start 06/02/17 at 09:00 Escitalopram Oxalate (Lexapro) 20 mg DAILY PO Last administered on 06/02/17 08 :52; Start 06/02/17 at 09:00 Non-Formulary Medication 1 each DAILY PO ; Start 06/02/17 at 09:00; Stop at 09:00; Status DC Topiramate (Topamax) 50 mg DAILY07 PO Last administered on 06/02/17 08:52; Start 06/02/17 at 07:00 Acetaminophen (Tylenol) 325 mg PRN Q6HRS PRN PO MILD PAIN / TEMP; Start at 16:45 Acetaminophen/ Hydrocodone Bitart (Lortab 5/325) 1 tab PRN Q6HRS PRN PO MODERATE TO SEVERE PAIN; Start 06/01/17 at 16:45; Stop 06/01/17 at 22:46; Status DC Hydralazine HCl (Apresoline) 10 mg PRN Q4HRS PRN IVP ELEVATED BP, SEE COMMENTS ; Start 06/01/17 at 16:45 Ondansetron HCl (Zofran) 4 mg PRN Q8HRS PRN IV NAUSEA/VOMITING; Start 06/01/17 at 16:45 Albuterol Sulfate (Ventolin Neb Soln) 2.5 mg PRN Q4HRS PRN NEB SHORTNESS OF BREATH; Start 06/01/17 at 16:45 Acetaminophen/ Hydrocodone Bitart (Lortab 5/325) 2 tab PRN Q6HRS PRN PO MODERATE TO SEVERE PAIN Last administered on 06/01/17t 23:27; Start 06/01/17 at 23 :00 Amitriptyline HCl (Elavil) 10 mg QHS PO ; Start 06/02/17 at 21:00 Pneumococcal Polyvalent Vaccine (Do NOT chart on this placeholder) 1 each PRN 1X PRN MC SEE COMMENTS; Start 06/02/17 at 10:30; Status UNV Pneumococcal Polyvalent Vaccine (Pneumovax 23) 0.5 ml ONCE ONCE VAX IM ; Start 06/02/17 at 12:00; Stop 06/02/17 at 12:01; Status DC Active Scripts Active [place] 5-325 Tablet (Acetaminophen/Hydrocodone Bitart) 1 Each Tablet 1 Tab PO PRN Q6HRS PRN Reported Amitriptyline Hcl 10 Mg Tablet 1 Tab PO QHS Escitalopram Oxalate 20 Mg Tablet 1 Tab PO DAILY Metformin Hcl 500 Mg Tablet 1 Tab PO BID Propranolol Hcl 60 Mg Cap.sa.24h 60 Mg PO DAILY Topiramate 50 Mg Tablet 1 Tab PO DAILY07 Allergies Allergies: Coded Allergies: cinnamon (Verified Allergy, Severe, throat closes, 02/02/16) Sulfa (Sulfonamide Antibiotics) (Verified Allergy, Intermediate, rash, 10/09) mushroom (Verified Allergy, Intermediate, 06/01/17) Physical Exam General: Alert, No acute distress Lungs: Clear to auscultation (b/l), Normal air movement Heart: Regular rate (and rhythm), Normal S1, Normal S2 Extremities: No edema, Normal pulses (2/4 radial b/l) Vitals VITALS Vital Signs Date Time Temp Pulse Resp B/P (MAP) Pulse Ox O2 Delivery O2 Flow Rate FiO2 06/02/17 10:30 97.9 95 22 124/95 (105) 97 Room Air 97.9 Labs Labs Laboratory Tests Test 06/01/17 13:18 06/01/17 16:35 06/01/17 19:55 06/01/17 21:13 White Blood Count 6.0 x10^3/uL (4.0-11.0) Red Blood Count 4.30 x10^6/uL (3.50-5.40) Hemoglobin 12.7 g/dL (12.0-15.5) Hematocrit 37.4 % (36.0-47.0) Mean Corpuscular Volume 87 fL (79-100) Mean Corpuscular Hemoglobin 30 pg (25-35) Mean Corpuscular Hemoglobin Concent 34 g/dL (31-37) Red Cell Distribution Width 13.6 % (11.5-14.5) Platelet Count 238 x10^3/uL (140-400) Neutrophils (%) (Auto) 44 % (31-73) Lymphocytes (%) (Auto) 45 % (24-48) Monocytes (%) (Auto) 8 % (0-9) Eosinophils (%) (Auto) 2 % (0-3) Basophils (%) (Auto) 1 % (0-3) Neutrophils # (Auto) 2.6 x10^3uL (1.8-7.7) Lymphocytes # (Auto) 2.7 x10^3/uL (1.0-4.8) Monocytes # (Auto) 0.5 x10^3/uL (0.0-1.1) Eosinophils # (Auto) 0.1 x10^3/uL (0.0-0.7) Basophils # (Auto) 0.0 x10^3/uL (0.0-0.2) Prothrombin Time 11.9 SEC (11.7-14.0) Prothromb Time International Ratio 0.9 (0.8-1.1) Activated Partial Thromboplast Time 26 SEC (24-38) D-Dimer (Erika) 0.52 ug/mlFEU (0.00-0.50) Sodium Level 142 mmol/L (136-145) Potassium Level 4.1 mmol/L (3.5-5.1) Chloride Level 107 mmol/L (98-107) Carbon Dioxide Level 29 mmol/L (21-32) Anion Gap 6 (6-14) Blood Urea Nitrogen 11 mg/dL (7-20) Creatinine 1.0 mg/dL (0.6-1.0) Estimated GFR (Cockcroft-Gault) 63.1 BUN/Creatinine Ratio 11 (6-20) Glucose Level 106 mg/dL (70-99) Calcium Level 8.4 mg/dL (8.5-10.1) Total Bilirubin 0.2 mg/dL (0.2-1.0) Aspartate Amino Transf (AST/SGOT) 18 U/L (15-37) Alanine Aminotransferase (ALT/SGPT) 23 U/L (14-59) Alkaline Phosphatase 44 U/L (46-116) Troponin I Quantitative < 0.017 ng/mL (0.000-0.055) < 0.017 ng/mL (0.000-0.055) BF-Trx-H-Type Natriuretic Peptide 156 pg/mL (0-124) Total Protein 6.9 g/dL (6.4-8.2) Albumin 3.2 g/dL (3.4-5.0) Albumin/Globulin Ratio 0.9 (1.0-1.7) Glucose (Fingerstick) 92 mg/dL (70-99) 100 mg/dL (70-99) Test 06/02/17 02:00 06/02/17 07:09 06/02/17 11:22 White Blood Count 6.1 x10^3/uL (4.0-11.0) Red Blood Count 4.15 x10^6/uL (3.50-5.40) Hemoglobin 12.3 g/dL (12.0-15.5) Hematocrit 35.9 % (36.0-47.0) Mean Corpuscular Volume 86 fL (79-100) Mean Corpuscular Hemoglobin 30 pg (25-35) Mean Corpuscular Hemoglobin Concent 34 g/dL (31-37) Red Cell Distribution Width 13.7 % (11.5-14.5) Platelet Count 201 x10^3/uL (140-400) Neutrophils (%) (Auto) 41 % (31-73) Lymphocytes (%) (Auto) 48 % (24-48) Monocytes (%) (Auto) 8 % (0-9) Eosinophils (%) (Auto) 2 % (0-3) Basophils (%) (Auto) 1 % (0-3) Neutrophils # (Auto) 2.5 x10^3uL (1.8-7.7) Lymphocytes # (Auto) 3.0 x10^3/uL (1.0-4.8) Monocytes # (Auto) 0.5 x10^3/uL (0.0-1.1) Eosinophils # (Auto) 0.1 x10^3/uL (0.0-0.7) Basophils # (Auto) 0.0 x10^3/uL (0.0-0.2) Sodium Level 138 mmol/L (136-145) Potassium Level 3.8 mmol/L (3.5-5.1) Chloride Level 104 mmol/L (98-107) Carbon Dioxide Level 29 mmol/L (21-32) Anion Gap 5 (6-14) Blood Urea Nitrogen 10 mg/dL (7-20) Creatinine 1.0 mg/dL (0.6-1.0) Estimated GFR (Cockcroft-Gault) 63.1 Glucose Level 100 mg/dL (70-99) Calcium Level 8.7 mg/dL (8.5-10.1) Troponin I Quantitative < 0.017 ng/mL (0.000-0.055) Glucose (Fingerstick) 104 mg/dL (70-99) 108 mg/dL (70-99) Laboratory Tests Test 06/01/17 16:35 06/01/17 19:55 06/01/17 21:13 06/02/17 02:00 Glucose (Fingerstick) 92 mg/dL (70-99) 100 mg/dL (70-99) Troponin I Quantitative < 0.017 ng/mL (0.000-0.055) < 0.017 ng/mL (0.000-0.055) White Blood Count 6.1 x10^3/uL (4.0-11.0) Red Blood Count 4.15 x10^6/uL (3.50-5.40) Hemoglobin 12.3 g/dL (12.0-15.5) Hematocrit 35.9 % (36.0-47.0) Mean Corpuscular Volume 86 fL (79-100) Mean Corpuscular Hemoglobin 30 pg (25-35) Mean Corpuscular Hemoglobin Concent 34 g/dL (31-37) Red Cell Distribution Width 13.7 % (11.5-14.5) Platelet Count 201 x10^3/uL (140-400) Neutrophils (%) (Auto) 41 % (31-73) Lymphocytes (%) (Auto) 48 % (24-48) Monocytes (%) (Auto) 8 % (0-9) Eosinophils (%) (Auto) 2 % (0-3) Basophils (%) (Auto) 1 % (0-3) Neutrophils # (Auto) 2.5 x10^3uL (1.8-7.7) Lymphocytes # (Auto) 3.0 x10^3/uL (1.0-4.8) Monocytes # (Auto) 0.5 x10^3/uL (0.0-1.1) Eosinophils # (Auto) 0.1 x10^3/uL (0.0-0.7) Basophils # (Auto) 0.0 x10^3/uL (0.0-0.2) Sodium Level 138 mmol/L (136-145) Potassium Level 3.8 mmol/L (3.5-5.1) Chloride Level 104 mmol/L (98-107) Carbon Dioxide Level 29 mmol/L (21-32) Anion Gap 5 (6-14) Blood Urea Nitrogen 10 mg/dL (7-20) Creatinine 1.0 mg/dL (0.6-1.0) Estimated GFR (Cockcroft-Gault) 63.1 Glucose Level 100 mg/dL (70-99) Calcium Level 8.7 mg/dL (8.5-10.1) Test 06/02/17 07:09 06/02/17 11:22 Glucose (Fingerstick) 104 mg/dL (70-99) 108 mg/dL (70-99) Assessment/Plan Assessment/Plan Ms Orellana is a 37 yr old female who presents with multiple symptoms, all of which have resolved except chest tenderness around the site of her pacemaker. 1) Psychosomatic symptoms 2) Musculoskeletal tenderness around pacemaker Patient is stable from cardiac standpoint. Will follow up for further cardiac issues as outpatient Recommend patient to see psychiatrist Thank you ALANNA NUNEZ MD Jun 02, 2017 13:59
--- NOTE | 2017-06-02 16:16 | PDOC3 ---
Discharge Summary Visit Information Date of Admission: Jun 01, 2017 Date of Discharge: Jun 02, 2017 Admitting Diagnosis: chest pain Final Diagnosis Left arm numbness, poss migraine in origin Recurrent syncope, likely vasovagal. Anxiety disordern w/ depression insomnia Problems Medical Problems: (1) Anterior chest wall pain Status: Acute (2) Left upper extremity numbness Status: Acute (3) Numbness of left lower extremity Status: Acute Brief Hospital Course Allergies Allergies Coded Allergies Type Severity Reaction Last Updated Verified cinnamon Allergy Severe throat closes 02/02/16 Yes Sulfa (Sulfonamide Antibiotics) Allergy Intermediate rash 02/02/16 Yes mushroom Allergy Intermediate 06/01/17 Yes Vital Signs Vital Signs Date Time Temp Pulse Resp B/P (MAP) Pulse Ox O2 Delivery O2 Flow Rate FiO2 06/02/17 10:30 97.9 95 22 124/95 (105) 97 Room Air 97.9 Lab Results Laboratory Tests Test 06/01/17 13:18 06/01/17 16:35 06/01/17 19:55 06/01/17 21:13 White Blood Count 6.0 x10^3/uL (4.0-11.0) Red Blood Count 4.30 x10^6/uL (3.50-5.40) Hemoglobin 12.7 g/dL (12.0-15.5) Hematocrit 37.4 % (36.0-47.0) Mean Corpuscular Volume 87 fL (79-100) Mean Corpuscular Hemoglobin 30 pg (25-35) Mean Corpuscular Hemoglobin Concent 34 g/dL (31-37) Red Cell Distribution Width 13.6 % (11.5-14.5) Platelet Count 238 x10^3/uL (140-400) Neutrophils (%) (Auto) 44 % (31-73) Lymphocytes (%) (Auto) 45 % (24-48) Monocytes (%) (Auto) 8 % (0-9) Eosinophils (%) (Auto) 2 % (0-3) Basophils (%) (Auto) 1 % (0-3) Neutrophils # (Auto) 2.6 x10^3uL (1.8-7.7) Lymphocytes # (Auto) 2.7 x10^3/uL (1.0-4.8) Monocytes # (Auto) 0.5 x10^3/uL (0.0-1.1) Eosinophils # (Auto) 0.1 x10^3/uL (0.0-0.7) Basophils # (Auto) 0.0 x10^3/uL (0.0-0.2) Prothrombin Time 11.9 SEC (11.7-14.0) Prothromb Time International Ratio 0.9 (0.8-1.1) Activated Partial Thromboplast Time 26 SEC (24-38) D-Dimer (Erika) 0.52 ug/mlFEU (0.00-0.50) Sodium Level 142 mmol/L (136-145) Potassium Level 4.1 mmol/L (3.5-5.1) Chloride Level 107 mmol/L (98-107) Carbon Dioxide Level 29 mmol/L (21-32) Anion Gap 6 (6-14) Blood Urea Nitrogen 11 mg/dL (7-20) Creatinine 1.0 mg/dL (0.6-1.0) Estimated GFR (Cockcroft-Gault) 63.1 BUN/Creatinine Ratio 11 (6-20) Glucose Level 106 mg/dL (70-99) Calcium Level 8.4 mg/dL (8.5-10.1) Total Bilirubin 0.2 mg/dL (0.2-1.0) Aspartate Amino Transf (AST/SGOT) 18 U/L (15-37) Alanine Aminotransferase (ALT/SGPT) 23 U/L (14-59) Alkaline Phosphatase 44 U/L (46-116) Troponin I Quantitative < 0.017 ng/mL (0.000-0.055) < 0.017 ng/mL (0.000-0.055) ZT-Iha-A-Type Natriuretic Peptide 156 pg/mL (0-124) Total Protein 6.9 g/dL (6.4-8.2) Albumin 3.2 g/dL (3.4-5.0) Albumin/Globulin Ratio 0.9 (1.0-1.7) Glucose (Fingerstick) 92 mg/dL (70-99) 100 mg/dL (70-99) Test 06/02/17 02:00 06/02/17 07:09 06/02/17 11:22 White Blood Count 6.1 x10^3/uL (4.0-11.0) Red Blood Count 4.15 x10^6/uL (3.50-5.40) Hemoglobin 12.3 g/dL (12.0-15.5) Hematocrit 35.9 % (36.0-47.0) Mean Corpuscular Volume 86 fL (79-100) Mean Corpuscular Hemoglobin 30 pg (25-35) Mean Corpuscular Hemoglobin Concent 34 g/dL (31-37) Red Cell Distribution Width 13.7 % (11.5-14.5) Platelet Count 201 x10^3/uL (140-400) Neutrophils (%) (Auto) 41 % (31-73) Lymphocytes (%) (Auto) 48 % (24-48) Monocytes (%) (Auto) 8 % (0-9) Eosinophils (%) (Auto) 2 % (0-3) Basophils (%) (Auto) 1 % (0-3) Neutrophils # (Auto) 2.5 x10^3uL (1.8-7.7) Lymphocytes # (Auto) 3.0 x10^3/uL (1.0-4.8) Monocytes # (Auto) 0.5 x10^3/uL (0.0-1.1) Eosinophils # (Auto) 0.1 x10^3/uL (0.0-0.7) Basophils # (Auto) 0.0 x10^3/uL (0.0-0.2) Sodium Level 138 mmol/L (136-145) Potassium Level 3.8 mmol/L (3.5-5.1) Chloride Level 104 mmol/L (98-107) Carbon Dioxide Level 29 mmol/L (21-32) Anion Gap 5 (6-14) Blood Urea Nitrogen 10 mg/dL (7-20) Creatinine 1.0 mg/dL (0.6-1.0) Estimated GFR (Cockcroft-Gault) 63.1 Glucose Level 100 mg/dL (70-99) Calcium Level 8.7 mg/dL (8.5-10.1) Troponin I Quantitative < 0.017 ng/mL (0.000-0.055) Glucose (Fingerstick) 104 mg/dL (70-99) 108 mg/dL (70-99) Laboratory Tests Test 06/01/17 16:35 06/01/17 19:55 06/01/17 21:13 06/02/17 02:00 Glucose (Fingerstick) 92 mg/dL (70-99) 100 mg/dL (70-99) Troponin I Quantitative < 0.017 ng/mL (0.000-0.055) < 0.017 ng/mL (0.000-0.055) White Blood Count 6.1 x10^3/uL (4.0-11.0) Red Blood Count 4.15 x10^6/uL (3.50-5.40) Hemoglobin 12.3 g/dL (12.0-15.5) Hematocrit 35.9 % (36.0-47.0) Mean Corpuscular Volume 86 fL (79-100) Mean Corpuscular Hemoglobin 30 pg (25-35) Mean Corpuscular Hemoglobin Concent 34 g/dL (31-37) Red Cell Distribution Width 13.7 % (11.5-14.5) Platelet Count 201 x10^3/uL (140-400) Neutrophils (%) (Auto) 41 % (31-73) Lymphocytes (%) (Auto) 48 % (24-48) Monocytes (%) (Auto) 8 % (0-9) Eosinophils (%) (Auto) 2 % (0-3) Basophils (%) (Auto) 1 % (0-3) Neutrophils # (Auto) 2.5 x10^3uL (1.8-7.7) Lymphocytes # (Auto) 3.0 x10^3/uL (1.0-4.8) Monocytes # (Auto) 0.5 x10^3/uL (0.0-1.1) Eosinophils # (Auto) 0.1 x10^3/uL (0.0-0.7) Basophils # (Auto) 0.0 x10^3/uL (0.0-0.2) Sodium Level 138 mmol/L (136-145) Potassium Level 3.8 mmol/L (3.5-5.1) Chloride Level 104 mmol/L (98-107) Carbon Dioxide Level 29 mmol/L (21-32) Anion Gap 5 (6-14) Blood Urea Nitrogen 10 mg/dL (7-20) Creatinine 1.0 mg/dL (0.6-1.0) Estimated GFR (Cockcroft-Gault) 63.1 Glucose Level 100 mg/dL (70-99) Calcium Level 8.7 mg/dL (8.5-10.1) Test 06/02/17 07:09 06/02/17 11:22 Glucose (Fingerstick) 104 mg/dL (70-99) 108 mg/dL (70-99) Brief Hospital Course Ms. Orellana is a 37 old admit for chest pain, and parathesias, Neuro eval cleared for DC, Dr. Zac siegel for chest pain, plan DC, outpatient f/u No need to repeat brain MRI per Neuro She follows with Dr. Gilliland as her neurologist, I recommended outpatient psychiatry referral, anxiety, insomnia, pain, mult agents I increased her amitriptyline to 25 HS at DC Discharge Information Condition at Discharge: Improved Follow Up: Weeks Disposition/Orders: D/C to Home Scheduled Amitriptyline Hcl (Amitriptyline Hcl), 1 TAB PO QHS Escitalopram Oxalate (Escitalopram Oxalate), 1 TAB PO DAILY, (Reported) Metformin Hcl (Metformin Hcl), 1 TAB PO BID, (Reported) Propranolol Hcl (Propranolol Hcl), 60 MG PO DAILY, (Reported) Topiramate (Topiramate), 1 TAB PO DAILY07, (Reported) Scheduled PRN Hydrocodone/Apap 5-325 ([place] 5-325 Tablet), 1 TAB PO PRN Q6HRS PRN for PAIN Discontinued Medications Amitriptyline Hcl (Amitriptyline Hcl), 1 TAB PO QHS, (Reported) Escitalopram Oxalate (Lexapro), 10 MG PO DAILY, (Reported) Discontinued Reason: Prescription changed CIERA DUTTA MD Jun 02, 2017 16:16
[2017-06-02] MEDS ORDERED: AMITRIPTYLINE HCL 10 MG TABLET. PO SCH (21:00)
[2017-06-03] MEDS ORDERED: metFORMIN 500 MG TABLET PO SCH (17:00)
== END 2017-06-02 14:55 | disposition home or self-care (01) ==
LOC: ER 12:21 → 4 NORTH 14:15
PROVIDERS: ADMIT Internal Medicine; ATTEND Internal Medicine
DX: R07.89 Other chest pain (principal); R20.0 Anesthesia of skin; I10 Essential (primary) hypertension; E11.9 Type 2 diabetes mellitus without complications; F41.9 Anxiety disorder, unspecified; F32.9 Major depressive disorder, single episode, unspecified; G47.00 Insomnia, unspecified; I25.10 Atherosclerotic heart disease of native coronary artery without angina pectoris; R55 Syncope and collapse; E66.9 Obesity, unspecified; Z95.0 Presence of cardiac pacemaker; Z68.41 Body mass index [BMI] 40.0-44.9, adult; Z83.3 Family history of diabetes mellitus; Z82.49 Family history of ischemic heart disease and other diseases of the circulatory system; Z83.2 Family history of diseases of the blood and blood-forming organs and certain disorders involving the immune mechanism
CPT/HCPCS: 36415; 70450; 71010; 71275; 72125; 80048; 80053; 82962; 83880; 84484; 85027; 85379; 85610; 85730; 93005; 96374; 96375; 99285; C1887; G0378; J1885; J3010; Q9967; G0379

== ENCOUNTER 2017-07-02 09:34 | Emergency (ER) | payer SELFPAY ==
[~2017-07-02] VITALS: Ht 188 cm; Wt 141.5 kg
[~2017-07-02 09:34] MED LIST changes: +AMIT10TA PO; +AMIT25TA PO; +ESCITALOPRAM OX20 MG PO
--- NOTE | 2017-07-02 10:30 | PHYS DOC ---
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 She states that she then became lightheaded and dizzy. After talking with the patient her lightheadedness and dizziness is a chronic issue. Patient states that she is also a type II diabetic however she states she had a few pretzels for breakfast this morning. Patient states that she attempted to call Dr. Mary's office in regards to the patient's chest and was having left arm. Patient states that she is currently not having any pain or discomfort at this time however she does have increased dizziness with movement of her head. Patient also lives in a mobile home with no electrical services. Review of Systems Review of Systems Constitutional: Denies fever or chills [] Eyes: Denies change in visual acuity, redness, or eye pain [] HENT: Denies nasal congestion or sore throat [] Respiratory: Denies cough or shortness of breath. C/o pinching in the left upper chest around pace maker Cardiovascular: No additional information not addressed in HPI [] GI: Denies abdominal pain, nausea, vomiting, bloody stools or diarrhea [] : Denies dysuria or hematuria [] Musculoskeletal: Denies back pain or joint pain [] Integument: Denies rash or skin lesions [] Neurologic: Denies headache, focal weakness or sensory changes. C/o dizziness Current Medications Current Medications Current Medications Medications (Trade) Dose Ordered Sig/Cary Start Time Stop Time Status Last Admin Dose Admin Meclizine HCl (Antivert) 25 mg 1X ONCE 07/02/17 10:45 07/02/17 10:46 DC 07/02/17 10:48 25 MG Allergies Allergies Allergies Coded Allergies Type Severity Reaction Last Updated Verified cinnamon Allergy Severe throat closes 02/02/16 Yes Sulfa (Sulfonamide Antibiotics) Allergy Intermediate rash 02/02/16 Yes mushroom Allergy Intermediate 06/01/17 Yes Physical Exam Physical Exam Constitutional: Well developed, well nourished, no acute distress, non-toxic appearance. [] HENT: Normocephalic, atraumatic, bilateral external ears normal, oropharynx moist, no oral exudates, nose normal. [] Eyes: PERRLA, EOMI, conjunctiva normal, no discharge. [] Neck: Normal range of motion, no tenderness, supple, no stridor. [] Cardiovascular:Heart rate regular rhythm, no murmur [] Lungs & Thorax: Bilateral breath sounds clear to auscultation [] Skin: Warm, dry, no erythema, no rash. Site around the pacemaker appears without redness or drainage noted. Back: No tenderness Extremities: No tenderness, no cyanosis, no clubbing, ROM intact, no edema. [] Neurologic: Alert and oriented X 3, normal motor function, normal sensory function, no focal deficits noted. [] Psychologic: Affect normal, judgement normal, mood normal. [] Patient was noted to have increase pinching sensation with movement of the left arm. Current Patient Data Vital Signs Vital Signs Date Time Temp Pulse Resp B/P (MAP) Pulse Ox O2 Delivery O2 Flow Rate FiO2 07/02/17 10:52 78 18 135/70 (91) 98 Room Air 07/02/17 09:50 98.0 98.0 Lab Values Laboratory Tests Test 07/02/17 10:17 07/02/17 10:20 Glucose (Fingerstick) 126 mg/dL (70-99) H White Blood Count 5.1 x10^3/uL (4.0-11.0) Red Blood Count 4.65 x10^6/uL (3.50-5.40) Hemoglobin 13.6 g/dL (12.0-15.5) Hematocrit 39.8 % (36.0-47.0) Mean Corpuscular Volume 86 fL (79-100) Mean Corpuscular Hemoglobin 29 pg (25-35) Mean Corpuscular Hemoglobin Concent 34 g/dL (31-37) Red Cell Distribution Width 13.8 % (11.5-14.5) Platelet Count 218 x10^3/uL (140-400) Neutrophils (%) (Auto) 50 % (31-73) Lymphocytes (%) (Auto) 39 % (24-48) Monocytes (%) (Auto) 8 % (0-9) Eosinophils (%) (Auto) 2 % (0-3) Basophils (%) (Auto) 1 % (0-3) Neutrophils # (Auto) 2.5 x10^3uL (1.8-7.7) Lymphocytes # (Auto) 2.0 x10^3/uL (1.0-4.8) Monocytes # (Auto) 0.4 x10^3/uL (0.0-1.1) Eosinophils # (Auto) 0.1 x10^3/uL (0.0-0.7) Basophils # (Auto) 0.0 x10^3/uL (0.0-0.2) Sodium Level 140 mmol/L (136-145) Potassium Level 3.8 mmol/L (3.5-5.1) Chloride Level 105 mmol/L (98-107) Carbon Dioxide Level 28 mmol/L (21-32) Anion Gap 7 (6-14) Blood Urea Nitrogen 7 mg/dL (7-20) Creatinine 1.1 mg/dL (0.6-1.0) H Estimated GFR (Cockcroft-Gault) 56.5 BUN/Creatinine Ratio 6 (6-20) Glucose Level 114 mg/dL (70-99) H Calcium Level 9.0 mg/dL (8.5-10.1) Total Bilirubin 0.4 mg/dL (0.2-1.0) Aspartate Amino Transferase (AST) 28 U/L (15-37) Alanine Aminotransferase (ALT) 35 U/L (14-59) Alkaline Phosphatase 42 U/L (46-116) L Total Protein 7.1 g/dL (6.4-8.2) Albumin 3.3 g/dL (3.4-5.0) L Albumin/Globulin Ratio 0.9 (1.0-1.7) L Laboratory Tests 07/02/17 10:20 Laboratory Tests 07/02/17 10:20 EKG EKG EKG completed at 0939 sinus rhythm noted heart rate 82 no ectopy noted no STEMI per Dr. Greer.[] Radiology/Procedures Radiology/Procedures [][facility] [address] [place] [address] IMAGING REPORT Signed PATIENT: EDWIN NOGUERA ACCOUNT: [id number] : 1980 LOCATION: ER AGE: 37 SEX: F EXAM STATUS: PRE ER ORD. PHYSICIAN: HOANG ARNOLD APRN REASON: pacemaker pinching in the left upper chest PROCEDURE: PORTABLE CHEST 1V AP portable chest radiograph 07/02/2017 Clinical History: Lightheadedness earlier today with chest pain around pacemaker in left chest. An AP portable erect digital radiograph of the chest was obtained. Comparison study is dated 06/01/2017. The left-sided pacemaker is unchanged position. The cardiac silhouette is borderline enlarged. The thoracic aorta is mildly tortuous. No acute pulmonary infiltrate is seen. No pleural effusion or pneumothorax is noted. The osseous structures are unchanged. Impression: No acute abnormality is seen. DICTATED and SIGNED BY: ELFEGO CORADO MD DATE: 07/02/17 1043 CC: ANGELITA CHERRY; HOANG ARNOLD APRN ~ Course & Med Decision Making Course & Med Decision Making Pertinent Labs and Imaging studies reviewed. (See chart for details) CBC, CMP within normal limits. EKG was normal as well. Portable chest x-ray was negative for any abnormalities. Spoke with Dr. Mary who came to the emergency department to evaluate patient. Creatinine was slightly elevated at 1.1. Patient will be discharged home with recommendations to drink plenty of fluids. Follow-up with Dr. Mary as needed. Return to emergency department signs and symptoms of become right. Patient was provided with all questions answered at the bedside. [] Dragon Disclaimer Dragon Disclaimer This electronic medical record was generated, in whole or in part, using a voice recognition dictation system. Departure Departure Impression: Primary Impression: Dehydration Disposition: 01 HOME, SELF-CARE Condition: STABLE Referrals: ANGELITA CHERRY (PCP) Patient Instructions: Dehydration, Adult, [id number] Additional Instructions: Activity as tolerated. Stay inside in a cool area to help with hydration and prevention dehydration Drink plenty of fluids Followup Dr. Mary within the next week. Return back to emergency department sign symptoms of become worse. HOANG ARNOLD APRN Jul 02, 2017 10:30
[2017-07-02 10:37] LABS: BASO % 1 % (0-3); EOS % 2 % (0-3); HEMATOCRIT 39.8 % (36.0-47.0); HEMOGLOBIN 13.6 g/dL (12.0-15.5); LYMPH % 39 % (24-48); MEAN CORPUSCULAR HEMOGLOBIN 29 pg (25-35); MEAN CORPUSCULAR HGB CONC 34 g/dL (31-37); MEAN CORPUSCULAR VOLUME 86 fL (79-100); MONO % 8 % (0-9); NEUT % 50 % (31-73); PLATELET COUNT 218 x10^3/uL (140-400); RED BLOOD COUNT 4.65 x10^6/uL (3.50-5.40); RED CELL DISTRIBUTION WIDTH 13.8 % (11.5-14.5); WHITE BLOOD COUNT 5.1 x10^3/uL (4.0-11.0)
[2017-07-02] MEDS ORDERED: MECLIZINE HCL 12.5 MG TABLET. PO ONE (10:45)
[2017-07-02 10:49] LABS: CREATININE 1.1 mg/dL (0.6-1.0); GFR 56.5; POTASSIUM 3.8 mmol/L (3.5-5.1)
[2017-07-02 10:54] LABS: ALBUMIN 3.3 g/dL (3.4-5.0); ALBUMIN/GLOBULIN RATIO 0.9 (1.0-1.7); TOTAL BILIRUBIN 0.4 mg/dL (0.2-1.0); TOTAL PROTEIN 7.1 g/dL (6.4-8.2)
--- NOTE | 2017-07-02 10:56 | RAD ---
AP portable chest radiograph 07/02/2017 Clinical History: Lightheadedness earlier today with chest pain around pacemaker in left chest. An AP portable erect digital radiograph of the chest was obtained. Comparison study is dated 06/01/2017. The left-sided pacemaker is unchanged position. The cardiac silhouette is borderline enlarged. The thoracic aorta is mildly tortuous. No acute pulmonary infiltrate is seen. No pleural effusion or pneumothorax is noted. The osseous structures are unchanged. Impression: No acute abnormality is seen.
[2017-07-02 11:46] VITALS: BP 139/86
--- NOTE | 2017-07-02 12:49 | EKG ---
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
== END 2017-07-02 11:47 | disposition home or self-care (01) ==
LOC: ER 09:34
DX: E86.0 Dehydration (principal); R07.89 Other chest pain; E11.9 Type 2 diabetes mellitus without complications; I25.10 Atherosclerotic heart disease of native coronary artery without angina pectoris; Z95.0 Presence of cardiac pacemaker; Z88.2 Allergy status to sulfonamides; Z91.018 Allergy to other foods
CPT/HCPCS: 36415; 71010; 80053; 82962; 85027; 93005; 99285; J8597

== ENCOUNTER 2017-07-22 19:20 | Emergency (ER) | payer SELFPAY ==
[~2017-07-22] VITALS: Ht 188 cm; Wt 136.1 kg
--- NOTE | 2017-07-22 21:20 | PHYS DOC ---
Past Medical History Past Medical History: CAD, Diabetes-Type II, Other Additional Past Medical Histor: BRADYCARDIA W/ PACEMAKER PLACEMENT Past Surgical History: Pacemaker, Other Additional Past Surgical Histo: L ankle, plastic surgery to lip Additional Information: Non smoker Alcohol Use: Rarely Drug Use: None Adult General Chief Complaint Chief Complaint: CHEST PAIN HPI HPI Patient is a 37 year old female who presents with chest pain. She states that at 1745 PM at dinner she suddenly felt very cold, dizzy, both her arm started tingling, and she tightness across her mid to left upper chest. The tightness has remained constant since that time. Initially a 9 on a pain scale and out 8. She felt like she chills today. Said a chronic constant cough for few days but the increase in cough is noted tonight. No hemoptysis. No recent travel. No control use, no tobacco use. She is followed by Dr. Gray for which she had a pacemaker placed for bradycardia rhythm disturbance. She is followed by Dr. Lewis for her primary care. She doesn't family history positive for heart disease. Review of Systems Review of Systems Constitutional: Denies fever or chills Eyes: Denies change in visual acuity, redness, or eye pain HENT: Denies nasal congestion or sore throat Respiratory: POS cough for few days or shortness of breath Cardiovascular: see HPI GI: Denies abdominal pain, nausea, vomiting, bloody stools or diarrhea : Denies dysuria or hematuria Musculoskeletal: Denies back pain or joint pain Integument: Denies rash or skin lesions Neurologic: Denies headache, focal weakness or sensory changes Current Medications Current Medications Current Medications Medications (Trade) Dose Ordered Sig/Cary Start Time Stop Time Status Last Admin Dose Admin Albuterol/ Ipratropium (Duoneb) 3 ml 1X ONCE 07/22/17 21:30 07/22/17 21:31 DC 07/22/17 21:49 3 ML Aspirin (Children'S Aspirin) 324 mg 1X ONCE 07/22/17 21:30 07/22/17 21:31 DC 07/22/17 22:15 324 MG Morphine Sulfate 2 mg 1X ONCE 07/22/17 21:30 07/22/17 21:31 DC 07/22/17 22:15 2 MG Sodium Chloride 1,000 ml @ 100 mls/hr Q10H 07/22/17 21:30 07/23/17 07:29 07/22/17 22:15 100 MLS/HR Allergies Allergies Allergies Coded Allergies Type Severity Reaction Last Updated Verified cinnamon Allergy Severe throat closes 02/02/16 Yes Sulfa (Sulfonamide Antibiotics) Allergy Intermediate rash 02/02/16 Yes mushroom Allergy Intermediate 06/01/17 Yes Physical Exam Physical Exam Constitutional: Well developed, well nourished, no acute distress, non-toxic appearance. HENT: Normocephalic, atraumatic, bilateral external ears normal, oropharynx moist, no oral exudates, nose normal. Eyes: PERRLA, EOMI, conjunctiva normal, no discharge. Neck: Normal range of motion, no tenderness, supple, no stridor. Cardiovascular:Heart rate regular rhythm, no murmur Lungs & Thorax: Bilateral breath sounds clear to auscultation Abdomen: Bowel sounds normal, soft, no tenderness, no masses, no pulsatile masses. Skin: Warm, dry, no erythema, no rash. Back: No tenderness, no CVA tenderness. Extremities: No tenderness, no cyanosis, no clubbing, ROM intact, no edema. Neurologic: Alert and oriented X 3, normal motor function, normal sensory function, no focal deficits noted. Psychologic: Affect normal, judgement normal, mood normal. Current Patient Data Vital Signs Vital Signs Date Time Temp Pulse Resp B/P (MAP) Pulse Ox O2 Delivery O2 Flow Rate FiO2 07/22/17 22:15 22 96 Room Air 07/22/17 19:38 97.6 87 152/78 (102) 97.6 Lab Values Laboratory Tests Test 07/22/17 19:01 07/22/17 20:40 POC Urine HCG, Qualitative Hcg negative (Negative) White Blood Count 7.6 x10^3/uL (4.0-11.0) Red Blood Count 4.38 x10^6/uL (3.50-5.40) Hemoglobin 12.7 g/dL (12.0-15.5) Hematocrit 38.2 % (36.0-47.0) Mean Corpuscular Volume 87 fL (79-100) Mean Corpuscular Hemoglobin 29 pg (25-35) Mean Corpuscular Hemoglobin Concent 33 g/dL (31-37) Red Cell Distribution Width 13.8 % (11.5-14.5) Platelet Count 245 x10^3/uL (140-400) Neutrophils (%) (Auto) 44 % (31-73) Lymphocytes (%) (Auto) 41 % (24-48) Monocytes (%) (Auto) 11 % (0-9) H Eosinophils (%) (Auto) 3 % (0-3) Basophils (%) (Auto) 1 % (0-3) Neutrophils # (Auto) 3.4 x10^3uL (1.8-7.7) Lymphocytes # (Auto) 3.2 x10^3/uL (1.0-4.8) Monocytes # (Auto) 0.9 x10^3/uL (0.0-1.1) Eosinophils # (Auto) 0.2 x10^3/uL (0.0-0.7) Basophils # (Auto) 0.0 x10^3/uL (0.0-0.2) D-Dimer (Erika) 0.42 ug/mlFEU (0.00-0.50) Urine Collection Type Unknown Urine Color Yellow Urine Clarity Clear Urine pH 5.5 Urine Specific [place] 1.020 Urine Protein Negative mg/dL (NEG-TRACE) Urine Glucose (UA) Negative mg/dL (NEG) Urine Ketones (Stick) Negative mg/dL (NEG) Urine Blood Negative (NEG) Urine Nitrite Negative (NEG) Urine Bilirubin Negative (NEG) Urine Urobilinogen Dipstick 0.2 mg/dL (0.2 mg/dL) Urine Leukocyte Esterase Trace (NEG) Urine RBC 0 /HPF (0-2) Urine WBC 0 /HPF (0-4) Urine Squamous Epithelial Cells Few /LPF Urine Bacteria Few /HPF (0-FEW) Urine Mucus Mod /LPF Sodium Level 141 mmol/L (136-145) Potassium Level 3.5 mmol/L (3.5-5.1) Chloride Level 102 mmol/L (98-107) Carbon Dioxide Level 31 mmol/L (21-32) Anion Gap 8 (6-14) Blood Urea Nitrogen 10 mg/dL (7-20) Creatinine 1.2 mg/dL (0.6-1.0) H Estimated GFR (Cockcroft-Gault) 51.1 Glucose Level 115 mg/dL (70-99) H Calcium Level 9.2 mg/dL (8.5-10.1) Creatine Kinase 175 U/L (26-192) Creatine Kinase MB (Mass) 0.8 ng/mL (0.0-3.6) Creatine Kinase MB Relative Index 0.5 % (0-4) Troponin I Quantitative < 0.017 ng/mL (0.000-0.055) GK-Mpi-I-Type Natriuretic Peptide 20 pg/mL (0-124) Lipase 149 U/L (73-393) Laboratory Tests 07/22/17 20:40 Laboratory Tests 07/22/17 20:40 EKG EKG EKG interpreted by myself at onset of shift change at 21:35 PM shows sinus rhythm, rate of 92, no acute ST changes. Radiology/Procedures Radiology/Procedures Chest x-ray interpreted by myself shows no acute infiltrate, no pleural effusion , no pneumothorax. Course & Med Decision Making Course & Med Decision Making Family patient upon arrival. Aspirin was dosed. She was given a DuoNeb treatment for her constant cough. Differential diagnosis for chest pain includes but is not limited to: Pericarditis, myocarditis, endocarditis, pneumothorax, pneumonia, aortic dissection, esophageal spasm, esophagitis, peptic ulcer disease, acute coronary syndrome, mediastinitis, Boerhaave syndrome, musculoskeletal chest wall pain, costochondritis, intercostal strain, rib fracture, pulmonary contusion, pneumonitis, pleural effusion, pericardial effusion, pericardial tamponode, and pleurisy. PERC Criteria Assessment: Age > 50: No HR > 100: No 02 < 95%: No H/o DVT/PE: No Recent trauma/surgery: No Hemoptysis No Exogenous Estrogen: No Unilateral Leg swelling: No Pretest probability > 15%: No Less than 2% risk of PE. No further work up is necessary MACE Scoring: History: Highly suspicious (2 points); Moderately suspicious (1 point). Slightly suspicious (0 point). EKG: ST segment depression (2 points). Nonspecific repolarization disturbance ( 1 point). normal (0 point) Age: Greater than 65 (2 points), 65-45 (1 point); less than 45 years old (0 points). Risk factors:> 3 risk factors (2 points), 1-2 risk factors (one point), no risk factors (0 point). Troponin: > 2 times normal (2 points), 1-2 times normal (1 point) normal limits (0 point) Total score: ___1___ Score % pts MACE/n MACE Policy 0-3: 32% 1.9% 0.05% Discharge 4-6: 51% 413/3136 13% 1.3% Observation Risk management 7-10: 17% 518/1045 50% 2.8% Observation Treatment, CAGb At 2245 PM: lab unremarkable. Her coughing has improved after treatment. Will place on Azithromax (dosed here). F/u W PCP this week. Dragon Disclaimer Dragon Disclaimer This electronic medical record was generated, in whole or in part, using a voice recognition dictation system. Departure Departure Impression: Primary Impression: Bronchitis Additional Impression: Pleuritic chest pain Disposition: HOME, SELF-CARE Condition: STABLE Referrals: ANGELITA LEWIS (PCP) Patient Instructions: Acute Bronchitis, Pleurisy Scripts Azithromycin (ZITHROMAX PACKET) 1 Gm Packet 1 PACKET PO ONCE, #1 PACKET Prov: PRITESH PAZ MD 07/22/17 Problem Qualifiers PRITESH PAZ MD Jul 22, 2017 21:20
[2017-07-22 21:30] LABS: BILIRUBIN,URINE NEGATIVE (NEG); GLUCOSE,URINE NEGATIVE (NEG); NITRITE,URINE NEGATIVE (NEG); PH,URINE 5.5; PROTEIN,URINE NEGATIVE (NEG-TRACE); UROBILINOGEN,URINE 0.2 mg/dL (0.2 mg/dL)
[2017-07-22] MEDS ORDERED: IPRATRPIUM/ALBUTEROL 0.5/2.5MG 3 ML NEBU. NEB ONE (21:30)
[2017-07-22] MEDS ORDERED: ASPIRIN CHEWABLE 81 MG TABLET. PO ONE (21:30)
[2017-07-22] MEDS ORDERED: IV NORMAL SALINE 1000ML BAG 1,000 ML IV SCH (21:30)
[2017-07-22] MEDS ORDERED: MORPHINE SULFATE 4 MG/ML DISP.SYRIN. IV ONE (21:30)
[2017-07-22 21:31] LABS: BASO % 1 % (0-3); EOS % 3 % (0-3); HEMATOCRIT 38.2 % (36.0-47.0); HEMOGLOBIN 12.7 g/dL (12.0-15.5); LYMPH # 3.2 x10^3/uL (1.0-4.8); LYMPH % 41 % (24-48); MEAN CORPUSCULAR HEMOGLOBIN 29 pg (25-35); MEAN CORPUSCULAR HGB CONC 33 g/dL (31-37); MEAN CORPUSCULAR VOLUME 87 fL (79-100); MONO % 11 % (0-9); NEUT % 44 % (31-73); PLATELET COUNT 245 x10^3/uL (140-400); RED BLOOD COUNT 4.38 x10^6/uL (3.50-5.40); RED CELL DISTRIBUTION WIDTH 13.8 % (11.5-14.5); WHITE BLOOD COUNT 7.6 x10^3/uL (4.0-11.0)
[2017-07-22 21:44] LABS: BACTERIA,URINE FEW /HPF (0-FEW); RBC,URINE 0 /HPF (0-2); SQUAMOUS EPITHELIAL CELL,UR FEW /LPF; WBC,URINE 0 /HPF (0-4)
[2017-07-22 21:51] LABS: CALCIUM 9.2 mg/dL (8.5-10.1); CREATININE 1.2 mg/dL (0.6-1.0); GFR 51.1; POTASSIUM 3.5 mmol/L (3.5-5.1)
[2017-07-22 22:04] LABS: CKMB MASS 0.8 ng/mL (0.0-3.6)
[2017-07-22 22:38] VITALS: BP 141/70
[2017-07-22] MEDS ORDERED: AZIT1PAC PO (22:49)
[2017-07-22] MEDS ORDERED: AZIT250T6 PO (22:51)
[2017-07-22] MEDS ORDERED: AZITHROMYCIN 250 MG TABLET. PO ONE (23:00)
--- NOTE | 2017-07-23 06:19 | EKG ---
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
--- NOTE | 2017-07-23 07:30 | RAD ---
Exam performed: One view chest. Indication: chest pain today Date of Service: 07/22/2017 11:20 PM Comparison: 07/02/17. Single AP upright portable view chest findings: Cardiomediastinal silhouette is within limits of normal. No acute infiltrates, effusion or pneumothorax is detected. There is a bipolar pacemaker in place. The bony structures are normal. Impression: No acute cardiopulmonary process is detected.
== END 2017-07-22 23:00 | disposition home or self-care (01) ==
LOC: ER 19:20
DX: J40 Bronchitis, not specified as acute or chronic (principal); I25.10 Atherosclerotic heart disease of native coronary artery without angina pectoris; E11.9 Type 2 diabetes mellitus without complications; Z95.0 Presence of cardiac pacemaker; Z88.2 Allergy status to sulfonamides; Z91.018 Allergy to other foods
CPT/HCPCS: 36415; 71010; 80048; 81001; 81025; 82550; 82553; 83690; 83880; 84484; 85025; 85379; 87086; 93005; 94250; 94640; 96361; 96374; 99285; J2270; J7030; J7620; Q0144

== ENCOUNTER 2017-08-15 13:08 | Emergency (ER) | payer SELFPAY ==
[~2017-08-15] VITALS: Ht 188 cm; Wt 136.1 kg
[~2017-08-15 13:08] MED LIST changes: +AZIT1PAC PO; +AZIT250T6 PO
--- NOTE | 2017-08-15 14:23 | RAD ---
Indication coughing. Malfunctioning cardiac pacing device. PA and lateral views of the chest were obtained and are compared to a study 07/22/2017. Heart size and pulmonary vessels are normal. The lungs are clear of acute infiltrates. There is no pleural fluid or pneumothorax. Bipolar cardiac pacing device is noted. IMPRESSION: No acute finding apparent in the chest
--- NOTE | 2017-08-15 14:58 | PHYS DOC ---
Past Medical History Past Medical History: CAD, Diabetes-Type II, Other Additional Past Medical Histor: BRADYCARDIA W/ PACEMAKER PLACEMENT, PCOS Past Surgical History: Pacemaker, Other Additional Past Surgical Histo: L ankle FX, plastic surgery to lip Alcohol Use: Rarely Drug Use: None Adult General Chief Complaint Chief Complaint: OTHER COMPLAINTS HPI HPI Patient is a 37 -year-old female treated for bronchitis 2 weeks ago with Z-Gary and prednisone presents with continued cough. Cough is described as dry, nonproductive. No fever chills, nausea vomiting or sweats. No history of asthma. 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 Reports feeling dizzy, lightheaded and pain over pacemaker site. Patient had a pacemaker placed several years ago due to bradycardia and syncope. No other acute symptoms or complaints. Patient does not currently have a primary care physician. [] Review of Systems Review of Systems Review symptoms as per history of present illness. All other review symptoms are negative. Allergies Allergies Allergies Coded Allergies Type Severity Reaction Last Updated Verified cinnamon Allergy Severe throat closes 02/02/16 Yes Sulfa (Sulfonamide Antibiotics) Allergy Intermediate rash 02/02/16 Yes mushroom Allergy Intermediate 06/01/17 Yes Physical Exam Physical Exam Constitutional: Well developed, well nourished, no acute distress, non-toxic appearance. [] HENT: Normocephalic, atraumatic, bilateral external ears normal, oropharynx moist, no oral exudates, nose normal. [] Eyes: PERRLA, EOMI, conjunctiva normal, no discharge. [] Neck: Normal range of motion, no tenderness, supple, no stridor. [] Cardiovascular:Heart rate regular rhythm, no murmur heard mild soft tissue tenderness over pacemaker insertion site. [] Lungs & Thorax: Respirations nonlabored, breath sounds clear, occasional dry hacking cough.[] Abdomen: Bowel sounds normal, soft, no tenderness, no masses, no pulsatile masses. [] Skin: Warm, dry, no erythema, no rash. [] Back: No tenderness, no CVA tenderness. [] Extremities: No tenderness, no cyanosis, no clubbing, ROM intact, no edema. [] Neurologic: Alert and oriented X 3, normal motor function, normal sensory function, no focal deficits noted. [] Psychologic: Affect normal, judgement normal, mood normal. [] Current Patient Data Vital Signs Vital Signs Date Time Temp Pulse Resp B/P (MAP) Pulse Ox O2 Delivery O2 Flow Rate FiO2 08/15/17 13:15 98.1 82 18 146/83 (104) 97 Room Air 98.1 Lab Values Laboratory Tests Test 08/15/17 13:24 08/15/17 13:58 POC Urine HCG, Qualitative Hcg negative (Negative) Glucose (Fingerstick) 80 mg/dL (70-99) EKG EKG [] Interpretation Time: EKG: Sinus rhythm, rate 79, no acute ST-T wave changes, QTC 423. Radiology/Procedures Radiology/Procedures [Chest x-ray: No acute cardiopulmonary disease per radiology report.] Course & Med Decision Making Course & Med Decision Making Pertinent Labs and Imaging studies reviewed. (See chart for details) [Patient no acute respiratory distress. Vital signs stable. Chest x-ray clear. Recommend supportive care with PCP referral. Patient's been evaluated in the primary care physician family due to the lack of health insurance. Will referred to low-cost healthcare clinic. Return precautions reviewed.] Dragon Disclaimer Dragon Disclaimer This electronic medical record was generated, in whole or in part, using a voice recognition dictation system. Departure Departure Impression: Primary Impression: Bronchitis Disposition: HOME, SELF-CARE Condition: GOOD Referrals: ANGELITA CHERRY (PCP) Patient Instructions: Bronchitis Additional Instructions: Please take albuterol inhaler, Mucinex and hydrocodone for cough. Follow-up with local primary care physician on referral sheet provided. TIMOTHY RAMIREZ DO Aug 15, 2017 14:58
[2017-08-15 15:05] VITALS: BP 132/90
--- NOTE | 2017-08-15 16:24 | EKG ---
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
== END 2017-08-15 15:08 | disposition home or self-care (01) ==
LOC: ER 13:08
DX: J40 Bronchitis, not specified as acute or chronic (principal); I25.10 Atherosclerotic heart disease of native coronary artery without angina pectoris; E11.9 Type 2 diabetes mellitus without complications; E28.2 Polycystic ovarian syndrome; Z95.0 Presence of cardiac pacemaker; Z88.2 Allergy status to sulfonamides; Z91.018 Allergy to other foods
CPT/HCPCS: 71020; 81025; 82962; 93005; 99285-25

== ENCOUNTER 2017-10-28 10:51 | Emergency (ER) | payer SELFPAY ==
[~2017-10-28] VITALS: Ht 188 cm; Wt 136.1 kg
[2017-10-28 11:36] LABS: BASO % 1 % (0-3); EOS % 3 % (0-3); HEMATOCRIT 41.8 % (36.0-47.0); HEMOGLOBIN 13.8 g/dL (12.0-15.5); LYMPH # 3.1 x10^3/uL (1.0-4.8); LYMPH % 44 % (24-48); MEAN CORPUSCULAR HEMOGLOBIN 29 pg (25-35); MEAN CORPUSCULAR HGB CONC 33 g/dL (31-37); MEAN CORPUSCULAR VOLUME 87 fL (79-100); MONO % 9 % (0-9); NEUT % 44 % (31-73); PLATELET COUNT 306 x10^3/uL (140-400); RED CELL DISTRIBUTION WIDTH 13.7 % (11.5-14.5)
--- NOTE | 2017-10-28 11:38 | PHYS DOC ---
Past Medical History Past Medical History: No Pertinent History Additional Past Medical Histor: BRADYCARDIA W/ PACEMAKER PLACEMENT, PCOS Past Surgical History: Pacemaker Additional Past Surgical Histo: L ankle FX, plastic surgery to lip Alcohol Use: Occasionally Additional Information: 1X WEEK Drug Use: None Adult General Chief Complaint Chief Complaint: CHEST PAIN HPI HPI Patient is a 37 year old female with a history of symptomatic bradycardia presents the ED stating she had an episode where she became dizzy and needed to sit down just prior to arrival. Patient was upstairs in the hospital because her dad is being evaluated for chest pain when she felt dizzy and felt like she was going to pass out. 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 Patient was seen in ED at [facility] and sent home after being worked up. No symptoms before, during or after. Patient follows up with Dr. Timothy Mckee. States long history of similar symptoms. States possibly anxiety related in nature. Denies chest pain, shortness of breath, palpitations, control, recent travel, headache, fever , weakness, nausea/vomiting, abdominal pain, diarrhea, blood in stool or rash. Review of Systems Review of Systems Constitutional: Denies fever or chills [] Eyes: Denies change in visual acuity, redness, or eye pain [] HENT: Denies nasal congestion or sore throat [] Respiratory: Denies cough or shortness of breath [] Cardiovascular: No additional information not addressed in HPI [] GI: Denies abdominal pain, nausea, vomiting, bloody stools or diarrhea [] : Denies dysuria or hematuria [] Musculoskeletal: Denies back pain or joint pain [] Integument: Denies rash or skin lesions [] Neurologic: Denies headache, focal weakness or sensory changes [] Endocrine: Denies polyuria or polydipsia [] All other systems were reviewed and found to be within normal limits, except as documented in this note. Current Medications Current Medications Current Medications Medications (Trade) Dose Ordered Sig/Cary Start Time Stop Time Status Last Admin Dose Admin Sodium Chloride 1,000 ml @ 1,000 mls/hr 1X ONCE 10/28/17 12:45 10/28/17 13:44 DC 10/28/17 12:48 1,000 MLS/HR Allergies Allergies Allergies Coded Allergies Type Severity Reaction Last Updated Verified cinnamon Allergy Severe throat closes 02/02/16 Yes Sulfa (Sulfonamide Antibiotics) Allergy Intermediate rash 02/02/16 Yes mushroom Allergy Intermediate 06/01/17 Yes Physical Exam Physical Exam Constitutional: Well developed, well nourished, no acute distress, non-toxic appearance. [] HENT: Normocephalic, atraumatic, bilateral external ears normal, oropharynx moist, no oral exudates, nose normal. [] Eyes: PERRLA, EOMI, conjunctiva normal, no discharge. [] Neck: Normal range of motion, no tenderness, supple, no stridor. [] Cardiovascular:Heart rate regular rhythm, no murmur [] Lungs & Thorax: Bilateral breath sounds clear to auscultation [] Abdomen: Bowel sounds normal, soft, no tenderness, no masses, no pulsatile masses. [] Skin: Warm, dry, no erythema, no rash. [] Back: No tenderness, no CVA tenderness. [] Extremities: No tenderness, no cyanosis, no clubbing, ROM intact, no edema. [] Neurologic: Alert and oriented X 3, normal motor function, normal sensory function, no focal deficits noted. [] Psychologic: Affect normal, judgement normal, mood normal. [] Current Patient Data Vital Signs Vital Signs Date Time Temp Pulse Resp B/P (MAP) Pulse Ox O2 Delivery O2 Flow Rate FiO2 10/28/17 13:53 74 134/71 (92) 100 Room Air 10/28/17 11:04 97.9 16 97.9 Lab Values Laboratory Tests Test 10/28/17 11:00 White Blood Count 7.0 x10^3/uL (4.0-11.0) Red Blood Count 4.80 x10^6/uL (3.50-5.40) Hemoglobin 13.8 g/dL (12.0-15.5) Hematocrit 41.8 % (36.0-47.0) Mean Corpuscular Volume 87 fL (79-100) Mean Corpuscular Hemoglobin 29 pg (25-35) Mean Corpuscular Hemoglobin Concent 33 g/dL (31-37) Red Cell Distribution Width 13.7 % (11.5-14.5) Platelet Count 306 x10^3/uL (140-400) Neutrophils (%) (Auto) 44 % (31-73) Lymphocytes (%) (Auto) 44 % (24-48) Monocytes (%) (Auto) 9 % (0-9) Eosinophils (%) (Auto) 3 % (0-3) Basophils (%) (Auto) 1 % (0-3) Neutrophils # (Auto) 3.1 x10^3uL (1.8-7.7) Lymphocytes # (Auto) 3.1 x10^3/uL (1.0-4.8) Monocytes # (Auto) 0.6 x10^3/uL (0.0-1.1) Eosinophils # (Auto) 0.2 x10^3/uL (0.0-0.7) Basophils # (Auto) 0.0 x10^3/uL (0.0-0.2) Sodium Level 141 mmol/L (136-145) Potassium Level 4.0 mmol/L (3.5-5.1) Chloride Level 102 mmol/L (98-107) Carbon Dioxide Level 30 mmol/L (21-32) Anion Gap 9 (6-14) Blood Urea Nitrogen 13 mg/dL (7-20) Creatinine 1.2 mg/dL (0.6-1.0) H Estimated GFR (Cockcroft-Gault) 51.1 BUN/Creatinine Ratio 11 (6-20) Glucose Level 105 mg/dL (70-99) H Calcium Level 9.2 mg/dL (8.5-10.1) Total Bilirubin 0.2 mg/dL (0.2-1.0) Aspartate Amino Transferase (AST) 17 U/L (15-37) Alanine Aminotransferase (ALT) 24 U/L (14-59) Alkaline Phosphatase 56 U/L (46-116) Creatine Kinase 163 U/L (26-192) Creatine Kinase MB (Mass) 1.4 ng/mL (0.0-3.6) Creatine Kinase MB Relative Index 0.9 % (0-4) Troponin I Quantitative < 0.017 ng/mL (0.000-0.055) Total Protein 7.9 g/dL (6.4-8.2) Albumin 3.6 g/dL (3.4-5.0) Albumin/Globulin Ratio 0.8 (1.0-1.7) L Laboratory Tests 10/28/17 11:00 Laboratory Tests 10/28/17 11:00 EKG EKG []1103: 73 BPM NSR. NO STEMI. NO ACUTE EKG CHANGES. Radiology/Procedures Radiology/Procedures PROCEDURE: PORTABLE CHEST 1V Indication: Syncope. Time of exam 12:22 PM Comparison is made with prior chest from 08/15/2017. The heart size is stable. Cardiac pacemaker remains in place. The lungs are clear. The pulmonary vascularity is normal. No infiltrate, effusion or pneumothorax is detected. Impression: No acute cardiopulmonary process is detected.[] Course & Med Decision Making Course & Med Decision Making Pertinent Labs and Imaging studies reviewed. (See chart for details) []Discussed case with patient's PCP, Dr. Timothy Mckee, who is very familiar with patient's case. Discussed EKG, imaging and lab findings with patient and PCP. Family at bedside. Dr. Mckee states patient can follow-up in his office tomorrow. Patient states she is feeling much better. Patient has had previous normal head CT scans in the past year. States she feels comfortable going home. Mother at bedside. States same symptoms in the past. Patient is ambulating around the room and not symptomatic. Discussed follow-up importance and reasons to return to the ED. Patient understands and agrees with plan, States she will go see Dr. Mckee tomorrow. Dragon Disclaimer Dragon Disclaimer This electronic medical record was generated, in whole or in part, using a voice recognition dictation system. Departure Departure Impression: Primary Impression: Pre-syncope Additional Impression: Anxiety Disposition: 01 HOME, SELF-CARE Condition: IMPROVED Referrals: ANGELITA CHERRY (PCP) TIMOTHY MCKEE MD Patient Instructions: Anxiety and Panic Attacks, Syncope Problem Qualifiers MARILIA TATE Oct 28, 2017 11:38
--- NOTE | 2017-10-28 11:47 | EKG ---
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
[2017-10-28 11:53] LABS: CALCIUM 9.2 mg/dL (8.5-10.1); CREATININE 1.2 mg/dL (0.6-1.0); GFR 51.1
[2017-10-28 11:59] LABS: ALBUMIN 3.6 g/dL (3.4-5.0); ALBUMIN/GLOBULIN RATIO 0.8 (1.0-1.7); TOTAL BILIRUBIN 0.2 mg/dL (0.2-1.0); TOTAL PROTEIN 7.9 g/dL (6.4-8.2)
[2017-10-28 12:19] LABS: CKMB MASS 1.4 ng/mL (0.0-3.6)
--- NOTE | 2017-10-28 12:32 | RAD ---
Indication: Syncope. Time of exam 12:22 PM Comparison is made with prior chest from 08/15/2017. The heart size is stable. Cardiac pacemaker remains in place. The lungs are clear. The pulmonary vascularity is normal. No infiltrate, effusion or pneumothorax is detected. Impression: No acute cardiopulmonary process is detected.
[2017-10-28] MEDS ORDERED: IV NORMAL SALINE 1000ML BAG 1,000 ML IV ONE (12:45)
--- NOTE | 2017-10-28 13:52 | EKG ---
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
[2017-10-28 13:53] VITALS: BP 134/71
== END 2017-10-28 14:20 | disposition home or self-care (01) ==
LOC: ER 10:51
DX: R55 Syncope and collapse (principal); F41.9 Anxiety disorder, unspecified; Z95.0 Presence of cardiac pacemaker; Z88.2 Allergy status to sulfonamides; Z91.018 Allergy to other foods
CPT/HCPCS: 36415; 71010; 80053; 82553; 84484; 85025; 93005; 96360; 99285; J7030